=== PATIENT | female | born 1975 | race Caucasian/White ===

== ENCOUNTER → 2020-04-10 10:07 | Outpatient (CLI) | payer OTHER, SELFPAY ==
--- NOTE | 2020-04-10 | EMB_PTH ---
PATIENT: NEEL KRISHNAMURTHY LOC: [facility]#:[id number] AGE/SX: 49/F ROOM: RE04/10/[address]: SIENNA Resendiz : 1975 BED: DIS: SPEC #: [id number] RECD: 04/11/20 10:39 STATUS: CYNDI REIván #: [id number] MAGED: 04/10/20 00:[address]: Renetta Tai NP DEPT: SURGICAL PATHOLOGY RECD BY: Baltazar Devine ENTERED: 04/11/20 10:40 SP TYPE: ENDOM BX/C ROSEMARY DR: Clau Primary Care Phys Tissues: Endometrium, NOS Procedures: Surgery Specimen Level IV HEADER OPERATION: Endometrial biopsy PRE-OP DIAGNOSIS: Abnormal uterine bleeding TISSUE SUBMITTED: Endometrial biopsy MICROSCOPIC DIAGNOSIS Endometrial biopsy: Proliferative endometrium. SJ:cheryl 04/14/2020 MICROSCOPIC DESCRIPTION Slides are reviewed. GROSS DESCRIPTION Received is one container labeled with the patient's name and not further designated. The specimen consists of multiple irregular and elongated fragments of reddish-begum soft tissue that in aggregate measure 3 x 2 x 0.2 cm. The specimen is totally submitted in one cassette. / AM:cheryl 04/11/2020 TC:4 CPT: 43772
[2020-04-10 09:29] VITALS: BMI 40.4
[2020-04-10 10:27] LABS: Absolute Lymphocyte Count 2.59 X10^3/uL (0.83-4.51); Absolute Neutrophil Count 5.1 X10^3/uL (2.0-7.7); Basophil# 0.04 X10^3/uL; Basophil% 0.5 % (0-1); Eosinophil# 0.14 X10^3/uL; Eosinophils% 1.7 % (0-5); Hemoglobin 13.4 g/dL (12.0-15.0); Lymphocyte # 2.59 X10^3/ul (4.0); Lymphocyte % 30.6 % (19-41); Mean Corp Hgb Conc 32.7 g/dL (32-36); Mean Corpuscular Hgb 28.8 pg (27.0-32.0); Mean Corpuscular Volume 88.2 fL (81-99); Mean Platelet Vol. 9.5 fl (6.2-12.0); Monocyte# 0.62 X10^3/uL; Monocyte% 7.3 % (0-10); NRBC Flagged by Analyzer 0 % (0-5); Neutrophil # 5.05 X10^3/uL (2.7-7.7); Neutrophil % 59.5 % (47-70); Platelet Count 294 K/mm3 (150-450); RBC Distribution Width CV 12.3 % (11.6-14.6); RBC Distribution Width SD 39.7 fl (35.1-43.9); Red Blood Count 4.65 M/mm3 (4.2-5.4); White Blood Count 8.5 K/mm3 (4.4-11.0)
[2020-04-10 10:45] LABS: Thyroid Stim Hormone (TSH) 2.29 uIU/mL (0.358-3.74)
[2020-04-15 21:19] LABS: HPV APTIMA, High Risk Negative (Negative)
== END ==
PROVIDERS: Referring Provider Nurse Practitioner Women's Health; Visit Provider Nurse Practitioner Women's Health
DX: Z12.4 Encounter for screening for malignant neoplasm of cervix (principal); Z13.29 Encounter for screening for other suspected endocrine disorder; N93.9 Abnormal uterine and vaginal bleeding, unspecified; N92.1 Excessive and frequent menstruation with irregular cycle
CPT/HCPCS: 36415; 84443; 85025; 87624; 88175; 88305; G0145

== ENCOUNTER → 2020-04-24 14:40 | Outpatient (CLI) | payer OTHER, SELFPAY ==
[2020-04-10 09:29] VITALS: BMI 40.4
--- NOTE | 2020-04-24 14:42 | US_ITS ---
STUDY: ULTRASOUND OF THE FEMALE PELVIS - COMPLETE REASON FOR EXAM: Female, 44 years old. IRREGULAR MENSES -- LMP LASTED 1 1/2 MONTHS LMP: 02/29/2020 TECHNIQUE: Endovaginal TECHNICAL QUALITY: Adequate. COMPARISON: None. FINDINGS: The uterus is anteverted and is in a midline position. The uterus measures 8.0 x 4.7 x 3.8 cm. Nabothian cysts at the uterine cervix. The endometrium measures 5.3 mm in thickness, and is hyperechoic. There is no demonstrated endometrial mass. There is no demonstrated myometrial mass. The patient does not have an I.U.D. The right ovary is visualized. The right ovary measures 2.4 x 1.3 x 1.4 cm. There is no right ovarian cyst or ovarian mass. There is no visualized right adnexal mass or complex lesion. There is normal arterial and normal venous vascularity. The left ovary is visualized. The left ovary measures 2.5 x 1.7 x 1.5 cm. There is no left ovarian cyst or ovarian mass. There is no visualized left adnexal mass or complex lesion. There is normal arterial and normal venous vascularity. There is no fluid in the cul-de-sac. The pre void volume of the bladder was 417 ml. US/Transvaginal Non- IMPRESSION: Nabothian cysts. Electronically Signed: Leobardo Rosado DO at 17:16 EST Tel [phone], Service support ,
--- NOTE | 2020-04-24 14:42 | US_ITS ---
STUDY: ULTRASOUND OF THE FEMALE PELVIS - COMPLETE REASON FOR EXAM: Female, 44 years old. IRREGULAR MENSES -- LMP LASTED 1 1/2 MONTHS LMP: 02/29/2020 TECHNIQUE: Endovaginal TECHNICAL QUALITY: Adequate. COMPARISON: None. FINDINGS: The uterus is anteverted and is in a midline position. The uterus measures 8.0 x 4.7 x 3.8 cm. Nabothian cysts at the uterine cervix. The endometrium measures 5.3 mm in thickness, and is hyperechoic. There is no demonstrated endometrial mass. There is no demonstrated myometrial mass. The patient does not have an I.U.D. The right ovary is visualized. The right ovary measures 2.4 x 1.3 x 1.4 cm. There is no right ovarian cyst or ovarian mass. There is no visualized right adnexal mass or complex lesion. There is normal arterial and normal venous vascularity. The left ovary is visualized. The left ovary measures 2.5 x 1.7 x 1.5 cm. There is no left ovarian cyst or ovarian mass. There is no visualized left adnexal mass or complex lesion. There is normal arterial and normal venous vascularity. There is no fluid in the cul-de-sac. The pre void volume of the bladder was 417 ml. US/Pelvic (Non ) IMPRESSION: Nabothian cysts. Electronically Signed: Leobardo Rosado DO at 17:16 EST Tel [phone], Service support ,
--- NOTE | 2020-04-24 15:40 | BI_ITS ---
MAMMOGRAPHY - BILATERAL SCREENING REASON FOR EXAM: Female, 44 years old. Routine annual screening examination. PERTINENT HISTORY: Non-contributory. TECHNIQUE: Digital bilateral breast casie (3D mammographic acquisition) in the CC and MLO projections. 2-D mediolateral oblique (MLO) and craniocaudad (CC) views of both breasts were obtained. CAD: Full Field Digital Mammography with Computer Added Detection was performed. COMPARISON: Comparison is made with prior outside examination dated 10/25/2017. FINDINGS: Breast Composition: There are scattered areas of fibroglandular density. There are no dominant masses or suspicious calcifications. Stable small benign appearing bilateral axillary lymph nodes. No other significant abnormalities are identified. There has been no significant change since the prior study. BI/SCRN MAMM (CAD)W/CASIE BILAT IMPRESSION: Stable bilateral screening mammogram. Yearly follow-up mammogram recommended. (A) ASSESSMENT CATEGORY: BIRADS Category 2: Benign. A letter regarding these results will be sent to the patient by the facility within 30 days. Approximately 10% of breast cancers are not detected by mammography. A normal mammogram should not delay biopsy of a clinically suspicious abnormality. [id number] Electronically Signed: Marv Sorto MD at 11:22 EST , Service support ,
== END ==
PROVIDERS: Referring Provider Nurse Practitioner Women's Health; Visit Provider Nurse Practitioner Women's Health
DX: N92.1 Excessive and frequent menstruation with irregular cycle (principal); Z12.31 Encounter for screening mammogram for malignant neoplasm of breast
CPT/HCPCS: 76830; 76856; 77063; 77067

== ENCOUNTER → 2020-05-20 13:51 | Outpatient (CLI) | payer OTHER, SELFPAY ==
[2020-05-20 13:22] VITALS: BMI 23.3
[2020-05-20 15:21] LABS: ALB/GLOB Ratio 0.9 RATIO (0.9-2.4); AST(SGOT) 14 U/L (15-37); Alanine Aminotransfer ALT/SGPT 25 U/L (13-56); Albumin, Serum 3.7 g/dL (3.2-5.0); Alkaline Phosphatase 45 U/L (45-117); Anion Gap 5 (5-15); BUN 10 mg/dL (7-18); BUN/Creat Ratio 9.7 RATIO (10-20); Calcium,Total 8.8 mg/dL (8.5-10.1); Chloride 107 mmol/L (98-107); Cholesterol 339 mg/dL (200); Creatinine, Serum 1.03 mg/dL (0.55-1.02); EST Glomerular Filtration Rate 61 mL/min (>60); Est Glom Filt Rate - Afr Amer 74 mL/min (>60); Globulin 4.2 g/dL (2.2-4.2); Glucose 121 mg/dL (74-106); High Density Lipoprotein 36 mg/dL; Potassium 3.7 mmol/L (3.5-5.1); Protein, Total 7.9 g/dL (6.4-8.2); Sodium Level 139 mmol/L (136-145); Triglycerides 139 mg/dL; Very Low Density Lipoprotein 28 mg/dL (5-40)
== END ==
PROVIDERS: PCP Internal Medicine; Referring Provider Internal Medicine; Visit Provider Internal Medicine
DX: I10 Essential (primary) hypertension (principal); E78.5 Hyperlipidemia, unspecified
CPT/HCPCS: 36415; 80053; 80061

== ENCOUNTER → 2020-05-29 13:48 | Outpatient (CLI) | payer OTHER, SELFPAY ==
[2020-05-20 13:22] VITALS: BMI 23.3
--- NOTE | 2020-05-29 13:49 | EKG12_ITS ---
Test Reason : PRE OP Blood Pressure : / mmHG Vent. Rate : 090 BPM Atrial Rate : 090 BPM P-R Int : 146 ms QRS Dur : 074 ms QT Int : 332 ms P-R-T Axes : 019 029 002 degrees QTc Int : 406 ms Normal sinus rhythm Nonspecific T wave abnormality Abnormal ECG Confirmed by JA ABDI, TRACI ([id number]), editor publications BRAXTON ZIEGLER ([id number]) on 06/02/2020 7:52:54 AM Referred By: Supriya Swartz Confirmed By:DARRYL PERES MD
--- NOTE | 2020-05-29 13:56 | ECHOCS_ITS ---
Reason For Study: VSD Procedure This was a 2D Doppler, Color Flow transthoracic echocardiogram. The study was technically difficult. Exam performed in department. Left Ventricle Normal LV size. 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 The estimated ejection fraction is 60 %. Normal diastology for age. No regional wall motion abnormalities noted. Right Ventricle Normal RV size. Normal systolic function. Atria Normal left atrium. Normal right atrium. No doppler evidence for ASD. Mitral Valve There is no mitral valve stenosis. No mitral valve insufficiency. Tricuspid Valve There is no tricuspid stenosis. Unable to estimate RV systolic pressure due to insufficient tricuspid regurgitant envelope. Trivial tricuspid valve insufficiency. Aortic Valve Trisinus/trileaflet aortic valve. There is no aortic stenosis. Trivial aortic valve insufficiency. Pulmonic Valve There is no pulmonic valvular stenosis. No pulmonic valve insufficiency. Great Vessels Normal aortic root. Pericardium/Pleural No pericardial effusion. Medication 22 gauge I.V. with prn adaptor inserted into right arm. Diluted definity 1ml given slow IV push to enhance endocardial definition. MMode/2D Measurements & Calculations LVIDd: 4.6 cm IVSd: 0.91 cm LVOT diam: 2.1 cm LVIDs: 2.7 cm LVPWd: 0.91 cm RVDd: 3.3 cm FS: 41.2 % LVOT area: 3.5 cm2 Ao root diam: 3.0 cm LAV(MOD-bp): 36.5 ml LVAd ap4: 36.0 cm2 LAV(MOD-bp) Indexed: 17.5 ml/m2 EDV(MOD-sp4): 131.2 ml LAV(MOD-sp2): 34.9 ml EDV(sp4-el): 136.0 ml LAV(MOD-sp4): 35.0 ml LVAs ap4: 21.3 cm2 ESV(MOD-sp4): 55.9 ml ESV(sp4-el): 57.1 ml EF(MOD-sp4): 57.4 % EF(sp4-el): 58.0 % SV(MOD-sp4): 75.3 ml SV(sp4-el): 78.9 ml LA A4 area: 13.9 cm2 LA dimension(2D): 3.7 cm RA A4 area: 13.8 cm2 Doppler Measurements & Calculations MV E max enio: 91.1 cm/sec Lat Peak E' Enio: 8.5 cm/sec Med Peak E' Enio: 8.9 cm/sec MV A max enio: 106.6 cm/sec E/E' lat: 10.7 E/E' med: 10.3 MV E/A: 0.86 Ao V2 max: 157.8 cm/sec LV V1 max: 114.1 cm/sec PA V2 max: 102.5 cm/sec Ao max P.0 mmHg LV V1 max P.2 mmHg ESTEFANI(V,D): 2.5 cm2 TR max enio: 190.3 cm/sec TR max P.5 mmHg Interpretation Summary The estimated ejection fraction is 60 %. 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 Ordering Physician: Supriya Swartz Referring Physician: Supriya Swartz Performed By: Do Hurtado RDCS
== END ==
PROVIDERS: PCP Internal Medicine; Referring Provider Internal Medicine; Visit Provider Internal Medicine
DX: Q21.0 Ventricular septal defect (principal); I10 Essential (primary) hypertension
CPT/HCPCS: 93005; 93306; Q9957; A4216; C8929

== ENCOUNTER → 2020-06-18 16:06 | Outpatient (CLI) | payer OTHER, SELFPAY ==
[2020-06-18 15:42] VITALS: BMI 40.8
[2020-06-18 16:08] LABS: Mucous, Urine 0 SEEN /hpf (<or=2+)
[2020-06-18 16:57] LABS: Color, Urine Yellow (Yellow); Glucose, Dipstick Normal (Normal); Ketone-Dipstick 5 mg/dl (Negative); Leukocyte Esterase-Dipstick 25 /ul (Negative); Nitrite-Dipstick Negative (Negative); Occult Blood-Urine 25 /ul (Negative); Protein-Dipstick 15 mg/dl (Negative); Specific Gravity, Urine 1.025 (1.002-1.030); Urine Bilirubin Dipstick Negative (Negative); Urine Clarity Clear (Clear); Urine Urobilinogen Normal (Normal)
[2020-06-18 17:09] LABS: Hemoglobin A1c 5.5 % (3.8-5.6)
[2020-06-18 17:26] LABS: Red Blood Cells-Urine 0-5 SEEN /hpf (0-5); Squamous Epithelial Cells - UA 0-5 SEEN /hpf (5-10)
[2020-06-18 17:27] LABS: Bacteria RARE /hpf (None Seen); White Blood Cells 0-5 SEEN /hpf (0-5)
== END ==
PROVIDERS: PCP Internal Medicine; Referring Provider Internal Medicine; Visit Provider Internal Medicine
DX: R35.0 Frequency of micturition (principal); R73.9 Hyperglycemia, unspecified
CPT/HCPCS: 36415; 81001; 83036

== ENCOUNTER 2020-09-09 09:51 | Day surgery (SDC) | payer OTHER, SELFPAY ==
[2020-06-18 15:42] VITALS: BMI 40.8
[2020-08-27 15:12] VITALS: BMI 40.8
[2020-09-08 17:29] LABS: Hematocrit 43.2 % (37-47); Hemoglobin 14.2 g/dL (12.0-15.0); Mean Corp Hgb Conc 32.9 g/dL (32-36); Mean Corpuscular Hgb 28.7 pg (27.0-32.0); Mean Corpuscular Volume 87.3 fL (81-99); Mean Platelet Vol. 10.7 fl (6.2-12.0); Platelet Count 298 K/mm3 (150-450); RBC Distribution Width SD 41.4 fl (35.1-43.9); Red Blood Count 4.95 M/mm3 (4.2-5.4); White Blood Count 8.1 K/mm3 (4.4-11.0)
[2020-09-08 17:41] LABS: Magnesium 2.4 mg/dL (1.6-2.6)
[2020-09-09] VITALS (10 sets, daily range): BP systolic 108–148; BP diastolic 62–85; PULSE 81–102; RESP 16–18; TEMP 36.4–36.9; O2SAT 92–100; BMI 39.3
[2020-09-09 10:27] LABS: Internal QC Validated? YES +Cl - CLEAR BKGD; Pregnancy, Urine Negative Negative
[2020-09-09 10:36] LABS: Bedside Glucose 129 mg/dL (70-110)
[2020-09-09] MEDS: dexAMETHasone 10 MG/ML Vial 8 MG IV (10:46)
[2020-09-09] MEDS: Celecoxib 200 MG Capsule 400 MG PO (10:47)
[2020-09-09] MEDS: Gabapentin 600 MG Tablet PO (10:48)
[2020-09-09] MEDS: Phenazopyridine 95 MG Tablet 190 MG PO (10:48)
[2020-09-09] MEDS: Acetaminophen 500 MG Tablet 1000 MG PO (10:49)
[2020-09-09] MEDS: Scopolamine 1mg/72hr Patch 1 PATCH TD (10:49)
[2020-09-09] MEDS: Lactated Ringers 1,000 ML 40 ML IV ×3 (10:55→14:30)
--- NOTE | 2020-09-09 10:59 | HP.PCM.OB_ITS ---
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 Hypertension Seasonal allergies Home Medications amlodipine [Norvasc] 5 mg PO DAILY 09/03/20 [History Last Taken 09/09/20] atorvastatin [Lipitor] 20 mg PO DAILY 09/03/20 [History Last Taken Unknown] Allergy/AdvReac Type Severity Reaction Status Date / Time No Known Allergies Allergy Verified 09/09/20 10:25 Family History Father Heart disease blood clot blood transfusion Myocardial infarction Unknown Breast cancer Grandfather Myocardial infarction Uncle CVA (cerebral vascular accident) Other Alcoholism Surgical History History of tubal ligation Social History household members: spouse and children number of children: 1 current occupational status: employed current occupation: Service Now history of recent travel: No sexually active: Yes Smoking Status: Never smoker alcohol intake: current alcohol intake frequency: holidays/special occasions only substance use type: does not use what type of physical activity do you participate in: walking seatbelt use: sometimes do you feel safe at home: Yes additional social history: - Darren History 1 Elective abortions Hx Para 1 Spontaneous abortions Hx # Term Pregnancies Ectopic pregnancies Hx # Pregnancies Multiple births # of living children 1 Past Pregnancies Del. Date Name GA/Weeks Outcome Route Bth Weight Infant Gen Labor Lgth Anesthesia Del Locatn Provider FOB Unknown Alvarez Hewitt 12/31/97 ROS Eyes Eyes: Reports systems reviewed and no addt'l complaints, except as documented ENT HEENT: Reports systems reviewed and no addt'l complaints, except as documented Cardiovascular Cardiovascular: Reports systems reviewed and no addt'l complaints, except as documented Respiratory/Chest Respiratory/Chest: Reports systems reviewed and no addt'l complaints, except as documented Gastrointestinal Gastrointestinal: Reports systems reviewed and no addt'l complaints, except as documented Genitourinary Genitourinary: Reports systems reviewed and no addt'l complaints, except as documented Musculoskeletal Musculoskeletal: Reports systems reviewed and no addt'l complaints, except as documented Integumentary Integumentary: Reports systems reviewed and no addt'l complaints, except as documented Neurologic Neurologic: Reports systems reviewed and no addt'l complaints, except as doc umented Psychiatric Psychiatric: Reports systems reviewed and no addt'l complaints, except as documented Endocrine Endocrinology: Reports systems reviewed and no addt'l complaints, except as documented Hematologic/Lymphatic Hematologic/Lymphatic: Reports systems reviewed and no addt'l complaints, except as documented Allergic/Immunologic Allergic/Immunologic: Reports systems reviewed and no addt'l complaints, except as documented Vital Signs Vital Signs Vital Signs: 09/09/20 10:26 Temperature 98.5 F Temperature Source Temporal Pulse Rate 101 H Respiratory Rate 18 Respiratory Pattern Normal Blood Pressure 142/85 H Blood Pressure Mean 104 Blood Pressure Source Monitor Blood Pressure Position Semi-Fowlers Blood Pressure Location Left Arm Pulse Ox 100 Oxygen Delivery Method Room Air Weight Weight: 229 lb 4.492 oz Body Mass Index (BMI) 39.3 Physical Exam Const alert, oriented x3, no apparent distress, average body habitus, healthy appearing and well nourished HEENT normocephalic and moist oral mucous membranes Head and Scalp: atraumatic Eyes PERRL and EOMs intact bilaterally Neck full ROM Resp normal respiratory effort, no retractions and no use of accessory muscles Cardio regular rate and regular rhythm GI soft to palpation, non-tender and non-distended Extremity normal to inspection and full ROM Skin no rashes or lesions noted Neuro no focal motor deficits and no sensory deficits noted Psych mental status grossly normal, affect normal, speech normal and activity/motor behavior normal Labs Labs Labs: Blood Type A POSITIVE Antibody Screen NEGATIVE Hct 43.2 % (37-47) Hgb 14.2 g/dL (12.0-15.0) Assessment & Plan (1) Abnormal uterine bleeding (AUB): PLAN: Patient presents for discussion of definitive surgical management of AUB Has previously failed OCPs. Bleeding has improved on Aygestin, but has a lot of difficulty remembering to take medication. Had ultrasound done that showed uterus measuring 8.0 x 4.7 x 3.8 cm and was otherwise unremarkable. Endometrial biopsy done and was negative Discussed plan to proceed with robotic assisted total laparoscopic hysterectomy, bilateral salpingectomy, possible bilateral salpingo-oophorectomy, cystoscopy Risks, benefits, indications, and alternatives to the procedure were discussed with the patient including bleeding, infection, and visceral or vascular injury. Discussed the possibility of excessive blood loss due to vascular injury or bleeding with fibroid uterus. Patient is agreeable to blood transfusion if medically necessary. Discussed the possibility of infection at the incision sites, inside the abdomen, or at the vaginal cuff. Discussed that this could require repeat hospitalization or reoperation. We discussed the possibility of damage to surrounding structures. Discussed the possibility of injury to bowel, bladder, or ureters. Discussed that if 1 of these injuries was identified at the time of the procedure, we would consider an intraoperative consult with general surgery or urology. Discussed the possibility of delayed diagnosis of bowel, bladder, or ureteral injury, and that this could require hospitalization after discharge. Patient is aware that in the event of injury to bowel bladder, bladder, or ureters she could require additional surgical interventions. Discussed that I would recommend cystoscopy at the time of surgery in order to evaluate integrity of the ureters. We discussed the possibility that the hysterectomy might not be able to be completed in a minimally invasive manner, and that this would require a larger incision on her abdomen and admission to the hospital. We discussed the risks and benefits of oophorectomy at the time of hysterectomy. Plan to leave ovaries in place unless appear extremely abnormal at the time of surgery Patient already obtained medical clearance by PCP, however patient reports that she has previously been told that due to history of VSD she needs infective endocarditis prophylaxis. Will verify with PCP if this is necessary given her medical history. Consent form signed with patient in the office
--- NOTE | 2020-09-09 12:00 | HYST_PTH ---
PATIENT: NEEL KRISHNAMURTHY [place] [facility] [place][id number] AGE/SX: 44/F ROOM: RE09/09/[address]: Dr. Belén Hsieh MD : 1975 BED: DIS: 09/09/2020 SPEC #: [id number] RECD: 09/09/20 15:37 STATUS: CYNDI YI #: [id number] MAGED: 09/09/20 12:[address]: Belén Hsieh DEPT: SURGICAL PATHOLOGY RECD BY: Raya Lopez ENTERED: 09/10/20 08:33 SP TYPE: HYSTERECT OTHR DR: Supriya Swartz MD Tissues: Uterus, NOS Procedures: Surgery Specimen Level V HEADER OPERATION: ERAS, robotic assisted total laparoscopic hysterectomy, salpingectomy PRE-OP DIAGNOSIS: Abnormal uterine bleeding TISSUE SUBMITTED: Uterus, cervix, bilateral fallopian tubes MICROSCOPIC DIAGNOSIS Uterus, cervix, bilateral fallopian tubes, hysterectomy and bilateral salpingectomy: Cervix - mild chronic inflammation. Endometrium - proliferative endometrium. Myometrium - no pathologic diagnosis. Bilateral fallopian tubes - no pathologic diagnosis. SJ:cheryl 09/11/2020 COMMENT Please make reference to previous specimen ([id number]) endometrial biopsy with diagnosis of ?proliferative endometrium.? MICROSCOPIC DESCRIPTION Slides are reviewed. GROSS DESCRIPTION Received in fixative is one container labeled with the patient's name and designated uterus. The specimen consists of a uterus with attached cervix and two detached fallopian tubes. The uterus with cervix measures 10.5 x 6.5 x 4 cm and weighs 122 gm. The ectocervix is oval in contour and free of lesions. The endocervical canal measures 4 cm in length and is grossly unremarkable. The triangular endometrial cavity measures 4 x 3.5 cm. The velvety, light begum endometrium measures up to 0.2 cm in thickness. The myometrium measures 2 cm in average thickness. No mass lesions are identified. The detached undesignated fallopian tubes have average lengths of 4 cm and average diameters of 0.5 cm. Normal fimbriated ends appear to be present. [employer] sections are submitted in eight cassettes as follows: 1 - anterior cervix, 2 - posterior cervix, 3 & 4 - anterior myometrial wall, 5 & 6 - posterior myometrial wall, 7 - one fallopian tube, 8 - the other fallopian tube. / AM:cheryl 09/10/20 TC:3 CPT: 20241
[2020-09-09] MEDS: Cefazolin 2 GM in 0.9% Normal Saline 100 ML IV (13:04)
[2020-09-09] MEDS: Ropivacaine 0.5% 30 ML Vial (15:10)
--- NOTE | 2020-09-09 16:18 | PCM.OPRPT ---
Problems Associated Problem List Diagnoses (1) Abnormal uterine bleeding (AUB): Report of Operation Date of Procedure: 09/09/20 Pre-Operative Diagnosis: Abnormal uterine bleeding Post-Operative Diagnosis: Same Surgery/Procedure Performed:: Robotic assisted total laparoscopic hysterectomy, bilateral salpingectomy, cystoscopy Description of Surgical Findings:: Normal-appearing uterus, cervix, tubes, and ovaries bilaterally russian language instructor: Naheed Chen Type of Anesthesia: General Specimen's removed: Uterus, cervix, bilateral fallopian tubes Estimated Blood Loss (mL): 50 Description of Procedure: The patient was taken to the operating room where general anesthesia was obtained without difficulty. She was prepped and draped in the dorsolithotomy position with yellowfin stirrups. Weighted speculum was placed in the posterior aspect of the vagina and the anterior lip of the cervix was grasped with a single-tooth tenaculum. The cervix was sequentially dilated in order to accommodate a Aventicular uterine manipulator. Gloves were changed and attention was directed to the abdominal cavity. A 5 mm incision was made in the left upper quadrant and the varies needle was inserted without difficulty. The abdomen was insufflated. The Veress needle was removed and a 5 mm Optiview port was placed under direct visualization. Intra-abdominal placement was confirmed. 8 mm incisions were made in the right and left lower quadrants and approximately 2 fingerbreadths above the umbilicus and robotic ports were placed. A 12 mm accessory port was placed in the right upper quadrant. Findings were as above. The patient was placed in steep Trendelenburg positioning and the bowel was displaced superiorly. The da Geovany robot was subsequently docked without any complications.the bilateral fallopian tubes were elevated and grasped. The mesosalpinx was cauterized and transected bilaterally. The fallopian tubes were amputated at the cornual region and removed through the accessory port. The utero-ovarian ligaments were identified bilaterally.. These were cauterized and transected with the bipolar cautery and the EndoShears. This was followed by the round ligament, which was cauterized and transected in a similar fashion. The anterior leaf of the broad ligament was entered and the bladder flap dissected off of the lower uterine segment and cervix without complications. The uterine arteries bilaterally were skeletonized, cauterized, and transected. At this time, the uterus was blanched effectively demonstrating that the blood supply to the uterus had been terminated. The colpotomy cup was made with the monopolar scissors and carried around the entire cervicovaginal junction until the cervix and uterus were released from its moorings to the vagina. The cervix and uterus were removed from the abdominal cavity through the vagina. A pneumooccluder was then placed in the vagina. The cuff was then closed in a running fashion using oh V-Loc suture. The abdomen was copiously irrigated, cleared of all clots and debris, and the pedicles were examined and noted to be hemostatic. Occluder was then removed from the vagina. Attention was then directed to the pelvis to perform a cystoscopy. Watt catheter was removed and the cystoscope was introduced into the bladder. The bladder was inspected and no evidence of trauma was noted. Vigorous spill was noted bilaterally from the ureters. The cystoscope was then removed from the bladder. Gloves were changed and all the instruments were subsequently removed from the patient?s abdomen and vagina, and the 12-mm fascial defect was closed with a #0 Vicryl stitch, and the five skin incisions were closed with #4-0 Monocryl for excellent hemostasis and reapproximation. All counts were correct x2. The patient was awakened and taken to the recovery room in stable condition. Complications None apparent Admit VTE Documentation VTE Present on Admission: No VTE Mechan Device Prophylaxis: SCD's VTE Pharm Prophylaxis ordered?: No Procedures Urinary/Genital 52xxx-59xxx: [id number] TLH+BS/O <250gr uterus (Robotic assisted)
--- NOTE | 2020-09-09 16:20 | PCM.DC ---
Discharge Instructions Diet Discharge Diet: No restrictions Activity Discharge Activity: May Not Drive (While on narcotic pain medication) and May Shower May resume sexual activity in: 8 weeks Lifting Restrictions: No lifting greater than 20 pounds until postop visit Dressing / Incision Call your doctor if your incision/area has: Continuous Slow Oozing, Sudden Increased Bleeding, Increased Pain/ Swelling, Increased Redness, Foul Smelling Discharge and Swelling at the incision site Call your doctor if you observe: Fever of 101 or Higher, Inability to urinate, Using more than 1 pad per hour, Shortness of breath, Dizziness, Fainting spells, Chest pain and Uncontrolled pain Remove Dressing in: 1 week Cleanse incision/area with: Soap & Water Follow Up Care Please Follow Up With: Belén Hsieh MD When: 2 weeks Test Results: Test results from this visit will be discussed in further detail at your follow-up appointment, if applicable. Discharge Plan Admission Primary Reason for Your Visit: Hysterectomy Attending Provider: Belén Hsieh Primary Care Provider: Supriya Swartz Instructions Patient Instructions: Caring for Yourself After Hysterectomy Discharge Orders/Prescriptions Prescriptions: New naproxen 250 MG tablet 250 - 500 mg PO Q8H PRN PRN (Reason: MILD PAIN) Qty: 30 RF: 1 oxycodone 5 mg capsule 5 mg PO Q6H PRN (Reason: pain) 5 Days Qty: 15 RF: 0 Continued atorvastatin [Lipitor] 20 mg tablet 20 mg PO DAILY RF: 0 amlodipine [Norvasc] 5 mg tablet 5 mg PO DAILY RF: 0 Referrals / Follow Up: Supriya Swartz MD [Primary Care Provider] - Disposition Disposition (needs filled in before D/C Order can be placed): Home, self care
== END 2020-09-09 19:27 | disposition home or self-care (01) ==
LOC: SDC 09:52 → AC 09:52
PROVIDERS: Anesthesiology; PCP Internal Medicine; Referring Provider Obstetrics & Gynecology; Visit Provider Obstetrics & Gynecology
PROC: 0UT90ZZ Resection of Uterus, Open Approach (ICD-10-PCS; CPT 58571; principal; 2020-09-09 11:40)
DX: N72 Inflammatory disease of cervix uteri (principal); N93.9 Abnormal uterine and vaginal bleeding, unspecified; Z20.822 Contact with and (suspected) exposure to COVID-19; Q21.0 Ventricular septal defect; I10 Essential (primary) hypertension; E78.00 Pure hypercholesterolemia, unspecified; Z79.899 Other long term (current) drug therapy
CPT/HCPCS: 00840; 58571; S2900; 36415; 81025; 82962; 83735; 85027; 86850; 86900; 86901; 87426; 88307; C9803; J7120; J2405

== ENCOUNTER → 2020-10-15 15:21 | Outpatient (CLI) | payer OTHER, SELFPAY ==
[2020-09-24 16:06] VITALS: BMI 39.2
[2020-10-15 16:56] LABS: ALB/GLOB Ratio 0.9 RATIO (0.9-2.4); AST(SGOT) 19 U/L (15-37); Alanine Aminotransfer ALT/SGPT 26 U/L (13-56); Albumin, Serum 3.5 g/dL (3.2-5.0); Alkaline Phosphatase 76 U/L (45-117); Anion Gap 7 (5-15); BUN 18 mg/dL (7-18); BUN/Creat Ratio 20.1 RATIO (10-20); Calcium,Total 8.7 mg/dL (8.5-10.1); Chloride 106 mmol/L (98-107); Cholesterol 261 mg/dL (200); Creatinine, Serum 0.89 mg/dL (0.55-1.02); EST Glomerular Filtration Rate 72 mL/min (>60); Est Glom Filt Rate - Afr Amer 87 mL/min (>60); Glucose 115 mg/dL (74-106); High Density Lipoprotein 54 mg/dL; Potassium 3.4 mmol/L (3.5-5.1); Protein, Total 7.5 g/dL (6.4-8.2); Sodium Level 139 mmol/L (136-145); Triglycerides 263 mg/dL; Very Low Density Lipoprotein 53 mg/dL (5-40)
== END ==
PROVIDERS: PCP Internal Medicine; Visit Provider Internal Medicine
DX: E78.5 Hyperlipidemia, unspecified (principal)
CPT/HCPCS: 36415; 80053; 80061

== ENCOUNTER 2021-02-09 15:17 | Outpatient (CLI) | payer OTHER, SELFPAY ==
[2021-02-09 15:55] VITALS: BP 142/77; PULSE 87; RESP 16; TEMP 36.9; O2SAT 99; BMI 38.6
[2021-02-09] MEDS: 0.9% Saline Lock 10 ML Syringe IV (15:58)
[2021-02-09 16:31] VITALS: BP 122/69; PULSE 81; RESP 16; TEMP 36.9; O2SAT 99
[2021-02-09 17:30] VITALS: BP 124/69; PULSE 78; RESP 16; TEMP 36.8; O2SAT 99
== END 2021-02-09 17:35 | disposition home or self-care (01) ==
LOC: MS3OUT 15:17 → MS3 15:18
PROVIDERS: PCP Internal Medicine; Referring Provider Nurse Practitioner Acute Care; Visit Provider Nurse Practitioner Acute Care
DX: U07.1 COVID-19 (principal)
CPT/HCPCS: J7050; M0245; Q0245; A4216

== ENCOUNTER 2021-05-27 15:14 | Outpatient (CLI) | payer OTHER, SELFPAY ==
--- NOTE | 2021-05-27 15:16 | BI_ITS ---
MAMMOGRAPHY - BILATERAL SCREENING REASON FOR EXAM: Female, 45 years old. Routine annual screening examination. PERTINENT HISTORY: Non-contributory. TECHNIQUE: Digital bilateral breast casie (3D mammographic acquisition) in the CC and MLO projections. 2-D mediolateral oblique (MLO) and craniocaudad (CC) views of both breasts were obtained. CAD: Full Field Digital Mammography with Computer Added Detection was performed. COMPARISON: Comparison is made with prior study dated 04/24/2020. FINDINGS: Breast Composition: There are scattered areas of fibroglandular density. There are no dominant masses or suspicious calcifications. No other significant abnormalities are identified. There has been no significant change since the prior study. BI/SCRN MAMM (CAD)W/CASIE BILAT IMPRESSION: Stable bilateral screening mammogram. Yearly follow-up mammogram recommended. (A) ASSESSMENT CATEGORY: BIRADS Category 1: Negative. A letter regarding these results will be sent to the patient by the facility within 30 days. Approximately 10% of breast cancers are not detected by mammography. A normal mammogram should not delay biopsy of a clinically suspicious abnormality. [id number] Electronically Signed: Marv Sorto MD at 8:07 EST ,
== END 2021-05-27 23:59 | disposition home or self-care (01) ==
LOC: OPBI 15:15
PROVIDERS: PCP Internal Medicine; Visit Provider Internal Medicine
DX: Z12.31 Encounter for screening mammogram for malignant neoplasm of breast (principal)
CPT/HCPCS: 77063; 77067

== ENCOUNTER → 2022-05-19 | Outpatient (CLI) | payer OTHER, SELFPAY ==
[2022-05-19 16:48] LABS: Absolute Neutrophil Count 5.9 X10^3/uL (2.0-7.7); Basophil# 0.04 X10^3/uL; Basophil% 0.4 % (0-1); Eosinophils% 3.1 % (0-5); Hematocrit 40.2 % (37-47); Hemoglobin 13.2 g/dL (12.0-15.0); Lymphocyte % 28.1 % (19-41); Mean Corp Hgb Conc 32.8 g/dL (32-36); Mean Corpuscular Hgb 29.9 pg (27.0-32.0); Monocyte# 0.63 X10^3/uL; Monocyte% 6.5 % (0-10); NRBC Flagged by Analyzer 0 % (0-5); Neutrophil # 5.92 X10^3/uL (2.7-7.7); Neutrophil % 61.6 % (47-70); Platelet Count 253 K/mm3 (150-450); RBC Distribution Width CV 12.6 % (11.6-14.6); RBC Distribution Width SD 41.6 fl (35.1-43.9); Red Blood Count 4.42 M/mm3 (4.2-5.4); White Blood Count 9.6 K/mm3 (4.4-11.0)
[2022-05-19 17:22] LABS: ALB/GLOB Ratio 0.8 RATIO (0.9-2.4); AST(SGOT) 9 U/L (15-37); Alanine Aminotransfer ALT/SGPT 20 U/L (13-56); Albumin, Serum 3.2 g/dL (3.2-5.0); Alkaline Phosphatase 65 U/L (45-117); Anion Gap 7 (5-15); BUN 17 mg/dL (7-18); BUN/Creat Ratio 16.7 RATIO (10-20); Calcium,Total 9.3 mg/dL (8.5-10.1); Chloride 104 mmol/L (98-107); Cholesterol 217 mg/dL (200); Creatinine, Serum 1.02 mg/dL (0.55-1.02); EST Glomerular Filtration Rate 61 mL/min (>60); Est Glom Filt Rate - Afr Amer 74 mL/min (>60); Globulin 4.2 g/dL (2.2-4.2); Glucose 113 mg/dL (74-106); High Density Lipoprotein 61 mg/dL; Protein, Total 7.4 g/dL (6.4-8.2); Sodium Level 140 mmol/L (136-145); Triglycerides 305 mg/dL; Very Low Density Lipoprotein 61 mg/dL (5-40)
== END | disposition home or self-care (01) ==
LOC: BIMLAB 15:49
PROVIDERS: PCP Internal Medicine; Referring Provider Internal Medicine; Visit Provider Internal Medicine
DX: E78.5 Hyperlipidemia, unspecified (principal); I10 Essential (primary) hypertension
CPT/HCPCS: 36415; 80053; 80061; 85025

== ENCOUNTER → 2023-06-01 | Outpatient (CLI) | payer OTHER, SELFPAY ==
[2023-06-01 16:39] LABS: Absolute Lymphocyte Count 2.85 X10^3/uL (0.83-4.51); Absolute Neutrophil Count 5.5 X10^3/uL (2.0-7.7); Basophil# 0.05 X10^3/uL; Basophil% 0.5 % (0-1); Eosinophil# 0.24 X10^3/uL; Eosinophils% 2.6 % (0-5); Hematocrit 41.9 % (37-47); Hemoglobin 13.8 g/dL (12.0-15.0); Lymphocyte # 2.85 X10^3/ul (0.83-4.51); Lymphocyte % 30.3 % (19-41); Mean Corp Hgb Conc 32.9 g/dL (32-36); Mean Corpuscular Hgb 29.6 pg (27.0-32.0); Mean Corpuscular Volume 89.7 fL (81-99); Mean Platelet Vol. 9.8 fl (6.2-12.0); Monocyte# 0.68 X10^3/uL; Monocyte% 7.2 % (0-10); NRBC Flagged by Analyzer 0 % (0-5); Neutrophil # 5.54 X10^3/uL (2.7-7.7); Platelet Count 242 K/mm3 (150-450); RBC Distribution Width CV 12.3 % (11.6-14.6); RBC Distribution Width SD 40.4 fl (35.1-43.9); Red Blood Count 4.67 M/mm3 (4.2-5.4); White Blood Count 9.4 K/mm3 (4.4-11.0)
[2023-06-01 17:27] LABS: AST(SGOT) 19 U/L (15-37); Alanine Aminotransfer ALT/SGPT 38 U/L (13-56); Albumin, Serum 3.7 g/dL (3.2-5.0); Alkaline Phosphatase 61 U/L (45-117); Anion Gap 8 (5-15); BUN 17 mg/dL (7-18); BUN/Creat Ratio 20.9 RATIO (10-20); Calcium,Total 9.2 mg/dL (8.5-10.1); Chloride 103 mmol/L (98-107); Cholesterol 224 mg/dL (200); Creatinine, Serum 0.81 mg/dL (0.55-1.02); EST Glomerular Filtration Rate 79 mL/min (>60); Est Glom Filt Rate - Afr Amer 96 mL/min (>60); Globulin 3.8 g/dL (2.2-4.2); Glucose 92 mg/dL (74-106); High Density Lipoprotein 66 mg/dL; Potassium 3.9 mmol/L (3.5-5.1); Protein, Total 7.5 g/dL (6.4-8.2); Sodium Level 138 mmol/L (136-145); Triglycerides 240 mg/dL; Very Low Density Lipoprotein 48 mg/dL (5-40)
== END | disposition home or self-care (01) ==
LOC: BIMLAB 16:14
PROVIDERS: PCP Internal Medicine; Referring Provider Internal Medicine; Visit Provider Internal Medicine
DX: I10 Essential (primary) hypertension (principal); E78.5 Hyperlipidemia, unspecified
CPT/HCPCS: 36415; 80053; 80061; 85025

== ENCOUNTER → 2023-12-29 | Outpatient (CLI) | payer OTHER, SELFPAY ==
--- NOTE | 2023-12-29 15:58 | BI_ITS ---
MAMMOGRAPHY - BILATERAL SCREENING REASON FOR EXAM: Female, 47 years old. Routine annual screening examination. PERTINENT HISTORY: Non-contributory. TECHNIQUE: Digital bilateral breast casie (3D mammographic acquisition) in the CC and MLO projections. 2-D mediolateral oblique (MLO) and craniocaudad (CC) views of both breasts were obtained. CAD: Full Field Digital Mammography with Computer Added Detection was performed. COMPARISON: Comparison is made with prior study dated May 27, 2021 and April 24, 2020. FINDINGS: Breast Composition: There are scattered areas of fibroglandular density. There are no dominant masses or suspicious calcifications. No other significant abnormalities are identified. There has been no significant change since the prior study. BI/SCRN MAMM (CAD)W/CASIE BILAT IMPRESSION: Stable bilateral screening mammogram. Yearly follow-up mammogram recommended. (A) ASSESSMENT CATEGORY: BIRADS Category 1: Negative. A letter regarding these results will be sent to the patient by the facility within 30 days. Approximately 10% of breast cancers are not detected by mammography. A normal mammogram should not delay biopsy of a clinically suspicious abnormality. [id number] Electronically Signed: Marv Sorto MD at 7:57 EDT ,
== END | disposition home or self-care (01) ==
LOC: OPBI 15:58
PROVIDERS: PCP Internal Medicine; Referring Provider Internal Medicine; Visit Provider Internal Medicine
DX: Z12.31 Encounter for screening mammogram for malignant neoplasm of breast (principal)
CPT/HCPCS: 77063; 77067

== ENCOUNTER → 2024-07-03 | Outpatient (CLI) | payer OTHER, SELFPAY ==
[2024-07-03 16:39] LABS: Absolute Lymphocyte Count 2.85 X10^3/uL (0.83-4.51); Absolute Neutrophil Count 5.5 X10^3/uL (2.0-7.7); Basophil# 0.06 X10^3/uL; Basophil% 0.6 % (0-1); Eosinophil# 0.47 X10^3/uL; Eosinophils% 4.9 % (0-5); Hematocrit 41.1 % (37-47); Lymphocyte # 2.85 X10^3/ul (0.83-4.51); Lymphocyte % 29.7 % (19-41); Mean Corp Hgb Conc 34.1 g/dL (32-36); Mean Corpuscular Hgb 29.7 pg (27.0-32.0); Mean Corpuscular Volume 87.3 fL (81-99); Monocyte# 0.72 X10^3/uL; Monocyte% 7.5 % (0-10); NRBC Flagged by Analyzer 0 % (0-5); Neutrophil # 5.46 X10^3/uL (2.7-7.7); Neutrophil % 56.9 % (47-70); Platelet Count 284 K/mm3 (150-450); RBC Distribution Width CV 12.5 % (11.6-14.6); RBC Distribution Width SD 39.9 fl (35.1-43.9); Red Blood Count 4.71 M/mm3 (4.2-5.4); White Blood Count 9.6 K/mm3 (4.4-11.0)
[2024-07-03 17:45] LABS: ALB/GLOB Ratio 1.4 RATIO (0.9-2.4); AST(SGOT) 20 U/L (<=31); Alanine Aminotransfer ALT/SGPT 16 U/L (<=34); Albumin, Serum 4.3 g/dL (3.5-5.0); Alkaline Phosphatase 78 U/L (35-104); Anion Gap 12 (5-15); BUN 11 mg/dL (4-19); BUN/Creat Ratio 14.4 RATIO (10-20); Calcium,Total 9.3 mg/dL (7.6-11.0); Carbon Dioxide 25.9 mmol/L (21.0-32.0); Chloride 103 mmol/L (98-108); Cholesterol 220 mg/dL (<=200); Creatinine, Serum 0.78 mg/dL (0.70-1.20); EST Glomerular Filtration Rate 92 (>60); Globulin 3.1 g/dL (2.2-4.2); Glucose 108 mg/dL (70-99); High Density Lipoprotein 62 mg/dL; Low Density Lipoprotein Calc. 77 mg/dL; Protein, Total 7.4 g/dL (5.9-8.4); Sodium Level 141 mmol/L (133-145); Total Bilirubin 0.17 mg/dL (0.00-1.30); Triglycerides 407 mg/dL; Very Low Density Lipoprotein 81 mg/dL (5-40); cholesterol:hdl ratio screen 3.56
== END | disposition home or self-care (01) ==
LOC: BIMLAB 15:48
PROVIDERS: PCP Internal Medicine; Referring Provider Internal Medicine; Visit Provider Internal Medicine
DX: Z00.00 Encounter for general adult medical examination without abnormal findings (principal)
CPT/HCPCS: 36415; 80053; 80061; 85025

== ENCOUNTER → 2024-12-26 | Outpatient (CLI) | payer OTHER, SELFPAY ==
[2024-12-26 13:20] LABS: AST(SGOT) 20 U/L (<=31); Alanine Aminotransfer ALT/SGPT 24 U/L (<=34); Albumin, Serum 4.5 g/dL (3.5-5.0); Alkaline Phosphatase 74 U/L (35-104); Anion Gap 14 (5-15); BUN 13 mg/dL (4-19); BUN/Creat Ratio 16.7 RATIO (10-20); Calcium,Total 9.3 mg/dL (7.6-11.0); Carbon Dioxide 22.6 mmol/L (21.0-32.0); Chloride 102 mmol/L (98-108); Cholesterol 246 mg/dL (<=200); Globulin 2.7 g/dL (2.2-4.2); Glucose 90 mg/dL (70-99); Low Density Lipoprotein Calc. 138 mg/dL; Potassium 3.6 mmol/L (3.3-5.1); Triglycerides 234 mg/dL; Very Low Density Lipoprotein 47 mg/dL (5-40); cholesterol:hdl ratio screen 4.00
== END | disposition home or self-care (01) ==
LOC: LAB 12:03
PROVIDERS: PCP Internal Medicine; Referring Provider Internal Medicine; Visit Provider Internal Medicine
DX: E78.2 Mixed hyperlipidemia (principal)
CPT/HCPCS: 36415; 80053; 80061

== ENCOUNTER → 2025-01-17 | Outpatient (CLI) | payer OTHER, SELFPAY ==
--- OUTSIDE RECORDS SUMMARY | 2025-01-17 16:08 | XMS RPT_ITS | CCD ---
Author Organization [facility] Care Team Providers Care Maxillofacial Prosthodontist Name Role Phone PROVIDER, UNKNOWN Unavailable Unavailable Eduardo, Emre Unavailable Unavailable Eduardo, Emre Unavailable Unavailable Rose Mariee MD Supriya BOSCH Primary Care Provider U navailable MD Supriya Tamez Referring Provider Unav ailDr. Supriya Berkowitz Attending Provider [phone] Maxime ABDI, Dr. Epps Primary Care Provider Maxime ABDI, Dr. Epps Attending Provider [phone] Maxime ABDI, Dr. Epps Referring Provider [phone] Maxime ABDI, Dr. Epps Primary Care Physician Maxime ABDI, Dr. Epps Attending Physician [phone] Maxime ABDI, Dr. Epps Referring Provider [phone] Olepaco, Efewongbe Primary Care Unavailable Oleghe, Efewongbe Referring Unavailable Oleghe, Efewongbe Attending Unavailable Oleghe, Efewongbe Primary Care Unavailable Oleghe, Efewongbe Referring Unavailable Oleghe, Efewongbe Attending Unavailable Oleghe, Efewongbe Primary Care Unavailable Oleghe, Efewongbe Referring Unavailable Oleghe, Efewongbe Attending Unavailable Oleghe, Efewongbe Referring Unavailable Oleghe, Efewongbe Attending Unavailable Oleghe, Efewongbe Primary Care Unavailable Oleghe, Efewongbe Referring Unavailable Oleghe, Efewongbe Attending Unavailable Oleghe, Efewongbe Primary Care Unavailable Medications Current Medications Medication Drug Class(es) Dates Sig (Normalized) Sig (Original) atorvastatin 40 mg oral tablet (20 sources) HMG-CoA Reductase Inhibitor Start: 05-05-2021 End: 10-22-2024 take 1 tablet by mouth once daily Atorvastatin 40 mg tablet Active 40 mg PO DAILY 90 October 22, 2024 11:34am Complies with drug therapy Start: 02-09-2021 End: 05-05-2021 Atorvastatin 40 mg tablet Discontinued 20 mg PO DAILY 90 April 29, 2021 4:05pm May 05, 2021 5:09pm Start: 02-09-2021 End: 05-05-2021 take 20 mg by mouth once daily Atorvastatin Discontinu ed 20 MG PO DAILY 90 April 29, 2021 3:05pm May 05, 2021 4:09pm Start: 10-16-2020 End: 02-09-2021 take 1 tablet by mouth once daily Atorvastatin 40 mg tablet Discontinued 40 mg PO DAILY 90 October 16, 2020 5:27pm February 09, 2021 4:54pm Start: 05-21-2020 End: 10-16-2020 take 1 tablet by mouth once daily Atorvastatin (Lipitor) 20 mg tablet Discontinued 20 mg PO DAILY 90 September 29, 2020 4:11pm October 16, 2020 5:27pm meclizine hydrochloride 25 mg oral tablet (3 sources) Antiemetic Start: 04-29-2021 take 1 tablet by mouth twice daily as needed Meclizine 25 mg tablet Active 25 mg PO TWICE A DAY as needed for vertigo 60 April 29, 2021 1:00am Complies with drug therapy Completed/Discontinued Medications Medication Drug Class(es) Dates Sig (Normalized) Sig (Original) amLODIPine 5 mg oral tablet (20 sources) Dihydropyridine Calcium Channel Raj Start: 05-21-2020 End: 06-27-2024 take 1 tablet by mouth once daily Amlodipine (Norvasc) 5 mg tablet Discontinued 5 mg PO DAILY 90 October 28, 2020 11:39am April 29, 2021 4:05pm naproxen 250 mg oral tablet (3 sources) Nonsteroidal Anti-inflammatory Drug Start: 09-09-2020 End: 09-22-2020 take 250-500 mg by mouth every eight hours as needed for pain Naproxen 250 MG tablet Discontinued 250 - 500 mg PO EVERY 8 HOURS NEEDED as needed for MILD PAIN 30 September 09, 2020 12:00am September 22, 2020 9:39am norethindrone acetate 5 mg oral tablet (6 sources) Start: 05-08-2020 End: 08-27-2020 take 1 tablet by mouth twice daily Norethindrone Acetate (Aygestin) 5 mg tablet Discontinued 5 mg PO TWICE A DAY 60 2 May 08, 2020 11:01am August 27, 2020 3:04pm Start: 04-10-2020 End: 05-08-2020 take 1 tablet by mouth three times daily, then take 1 tablet by mouth twice daily Norethindrone Acetate (Aygestin) 5 mg tablet Discontinued 5 mg PO .COMPLEX 45 0 April 10, 2020 1:00am May 08, 2020 11:02am 5 mg PO tid until bleeding stops X 24 hr then bid to finish Rx oxyCODONE hydrochloride 5 mg oral capsule (3 sources) Opioid Agonist Start: 09-09-2020 End: 09-22-2020 take 1 capsule by mouth every six hours as needed for pain Oxycodone 5 mg capsule Discontinued 5 mg PO EVERY 6 HOURS as needed for pain 15 5 0 September 09, 2020 September 22, 2020 9:39am Status post hysterectomy Acquired absence of both cervix and uterus Problems Active Problems Problem Classification Problem Date Documented Date Episodic/Chronic Cardiac and circulatory congenital anomalies (3 sources) Ventricular septal defect; Translations: [Ventricular septal defect] 05-20-2020 Chronic Conditions associated with dizziness or vertigo (3 sources) Vertigo; Translations: [Dizziness and giddiness] 04-29-2021 Episodic Diabetes mellitus without complication (3 sources) Hyperglycemia; Translations: [Hyperglycemia, unspecified] 10-16-2020 Episodic Disorders of lipid metabolism (7 sources) Hyperlipidemia; Translations: [Hyperlipidemia, unspecified] Onset: 12-26-2024 04-29-2021 Chronic Essential hypertension (6 sources) Hypertensive disorder; Translations: [Essential (primary) hypertension] 04-29-2021 Chronic Other ear and sense organ disorders (2 sources) Tinnitus; Translations: [Tinnitus, unspecified ear] 11-30-2023 Episodic Other female genital disorders (3 sources) Abnormal uterine bleeding; Translations: [Abnormal uterine and vaginal bleeding, unspecified] 08-27-2020 Chronic Other lower respiratory disease (1 source) Cough; Translations: [Acute cough] 02-08-2021 Episodic Other lower respiratory disease (2 sources) Cough; Translations: [Acute cough] 02-08-2021 Episodic Other screening for suspected conditions (not mental disorders or infectious disease) (5 sources) Patient encounter status; Translations: [Encounter for screening for malignant neoplasm of colon] Onset: 06-27-2024 12-24-2020 Episodic Residual codes; unclassified (5 sources) Immunization not carried out because of patient refusal; Translations: [COVID-19 vaccination declined] 09-24-2020 Episodic Residual codes; unclassified (3 sources) Past history of procedure; Translations: [Other specified postprocedural states] 09-12-2020 Episodic Unclassified (2 sources) Contact with other sharp object(s), not elsewhere classified, initial encounter; Translations: [Contact with other sharp object(s), NEC, initial encounter] Onset: 12-06-2016 Unclassified (2 sources) Encounter for screening for malignant neoplasm of colon; Translations: [Z12.11 - Encounter for screening for malignant neoplasm of colon] Unclassified (1 source) Z00.00 - Encounter for general adult medical examination without abnormal findings Viral infection (3 sources) Disease caused by 2019-nCoV; Translations: [COVID-19] 02-08-2021 Episodic Past or Other Problems Problem Classification Problem Date Documented Da te Episodic/Chronic Open wounds of extremities (2 sources) Laceration without foreign body of right wrist, initial encounter; Translations: [Laceration without foreign body of right wrist, init encntr] Onset: 12-06-2016 Episodic Unclassified (3 sources) 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 10-23-2021 Results Test Name Value Interpretation Reference Range Facility Anion gap in Serum or Plasma Ordered By: Supriya Swartz on 12-26-2024 Anion gap [Moles/Vol] 14 mmol/L - [facility] BUN/creatinine ratioOrdered By: Supriya Swartz on 12-26-2024 Urea nitrogen/Creatinine [Mass ratio] 16.7 mg/mg - [facility] Bilirubin, totalOrdered By: Supriya Swartz on 12-26-2024 Bilirubin [Mass/Vol] 0.39 mg/dL 0.00-1.30 [facility] Calculated very low density lipoprotein (VLDL) cholesterol measurementOrdered By: Supriya Swartz on 12-26-2024 Calculated very low density lipoprotein (VLDL) cholesterol measurement 47 mg/dL High 5-40 [facility] Carbon dioxide, total [Moles /volume] in Central venous bloodOrdered By: Supriya Swartz on 12-26-2024 CO2 [Moles/Vol] 22.6 mmol/L 21.0-32.0 [facility] Chloride assayOrdered By: Siddharth Swartz on 12-26-2024 Chloride [Moles/Vol] 102 mmol/L 98-108 [facility] Comprehensive Metabolic Prof ilon 12-26-2024 Albumin [Mass/Vol] 4.5 g/dL Normal 3.5-5.0 [facility] Comment on above: Performed By: #### L 500.4100, L500.4050 #### [facility] [address] [place], [address] Albumin/Globulin [Mass ratio] 1.6 {ratio} Normal 0.9-2.4 [facility] Comment on above: Performed By: #### L 500.4100, L500.4050 #### [facility] [address] [place], [address] ALK PHOS 74 U/L Normal 35-104 [facility] Comment on above: Performed By: #### L 500.4100, L500.4050 #### [facility] [address] [place], [address] ALT [Catalytic activity/Vol] 24 U/L Normal <=34 [facility] Comment on above: Performed By: #### L 500.4100, L500.4050 #### [facility] [address] [place], [address] AST [Catalytic activity/Vol] 20 U/L Normal <=31 [facility] Comment on above: Performed By: #### L 500.4100, L500.4050 #### [facility] [address] [place], [address] Bilirubin [Mass/Vol] 0.39 mg/dL Normal 0.00-1.30 [facility] Comment on above: Performed By: #### L 500.4100, L500.4050 #### [facility] [address] [place], [address] BUN/CRE 16.7 RATIO Normal 10-20 [facility] Comment on above: Performed By: #### L 500.4100, L500.4050 #### [facility] [address] [place], [address] Calcium [Mass/Vol] 9.3 mg/dL Normal 7.6-11.0 [facility] Comment on above: Performed By: #### L 500.4100, L500.4050 #### [facility] [address] [place], [address] Chloride [Moles/Vol] 102 mmol/L Normal 98-108 [facility] Comment on above: Performed By: #### L 500.4100, L500.4050 #### [facility] [address] [place], [address] CO2 [Moles/Vol] 22.6 mmol/L Normal 21.0-32.0 [facility] Comment on above: Performed By: #### L 500.4100, L500.4050 #### [facility] [address] [place], [address] Creatinine [Mass/Vol] 0.79 mg/dL Normal 0.70-1.20 [facility] Comment on above: Performed By: #### L 500.4100, L500.4050 #### [facility] [address] [place], [address] GAP 14 Normal 5-15 [facility] Comment on above: Performed By: #### L 500.4100, L500.4050 #### [facility] [address] [place], [address] GFR/1.73 sq M.predicted among non-blacks MDRD (S/P/Bld) [Vol rate/Area] 92 mL/min/{1.73_m2} Normal >60 [facility] Comment on above: Result Comment: mL/m in/1.73m2 CKD-EPI Creatinine Equation (2020) Performed By: #### L 500.4100, L500.4050 #### [facility] [address] [place], [address] Globulin (S) [Mass/Vol] 2.7 g/dL Normal 2.2-4.2 [facility] Comment on above: Performed By: #### L 500.4100, L500.4050 #### [facility] [address] [place], [address] Glucose [Mass/Vol] 90 mg/dL Normal 70-99 [facility] Comment on above: Performed By: #### L 500.4100, L500.4050 #### [facility] [address] [place], [address] Potassium [Moles/Vol] 3.6 mmol/L Normal 3.3-5.1 [facility] Comment on above: Performed By: #### L 500.4100, L500.4050 #### [facility] [address] [place], [address] Sodium [Moles/Vol] 139 mmol/L Normal 133-145 [facility] Comment on above: Performed By: #### L 500.4100, L500.4050 #### [facility] [address] [place], [address] T PROT 7.2 g/dL Normal 5.9-8.4 [facility] Comment on above: Performed By: #### L 500.4100, L500.4050 #### [facility] [address] [place], [address] Urea nitrogen [Mass/Vol] 13 mg/dL Normal 4-19 [facility] Comment on above: Performed By: #### L 500.4100, L500.4050 #### [facility] [address] [place], [place], [address] Glomerular filtration rate ( GFR) estimation/1.73 sq m using serum, plasma, or whole bOrdered By: Supriya Swartz on 12-26-2024 GFR/1.73 sq M.predicted among non-blacks MDRD (S/P/Bld) [Vol rate/Area] 92 mL/min/{1.73_m2} >60 [facility] Comment on above: mL/min/1.73m2 CKD-EP I Creatinine Equation (2020) Internal Medicine Office Vis itobrissa 12-26-2024 Internal Medicine Office Visit [facility] Internal Medicine [address] [place] [address] [place] [address] OFFICE VISIT Date of Service: 12/26/24 MR#: [id number] Acct: [id number] Name: MADISON LI Rep #: [id number] : 1975 Provider: Dr. Supriya marquez MD Age/Sex: 48/F Location: [facility] Status: Signed Intake Vital Signs 06/27/24 16:18 06/27/24 16:33 Height 5 ft 4 in 5 ft 4 in Weight: 232 lb 4 oz BMI 39.9 BP 128/78 H Blood Pressure Location Lt brachial Position Sitting Respiration 16 Pulse 88 Pulse Source Monitor Temp 97 F L Temp Source Temporal Pulse Oximetry (%) 98 Oxygen Delivery Method room air Intake Visit Reasons: 6 M FU Chief Complaint: Follow-up Sterile Process Coordinator Required: No Accompanied by: Self Is patient in pain?: No Allergies No Known Allergies Allergy (Verified 12/26/24 13:20) Medications ???Medication ???Instructions ???Recorded ???Confirmed ???Type meclizine 25 mg tablet 25 mg PO BID PRN vertigo #60 tabs 04/29/21 12/26/24 Rx amlodipine 5 mg tablet (Norvasc) 5 mg PO DAILY #90 tabs 06/27/24 Rx atorvastatin 40 mg tablet 40 mg PO DAILY #90 tabs 10/22/24 0 12/26/24 Rx PFSH Medical History (Updated 12/26/24 @ 13:[address] 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 Surgical History History of partial hysterectomy H/O cystoscopy H/O bilateral salpingectomy History of tubal ligation Family History Father Heart disease blood clot blood transfusion Myocardial infarction Unknown Breast cancer Grandfather Myocardial infarction Uncle CVA (cerebral vascular accident) Mother CVA (cerebral vascular accident) Other Alcoholism Social History household members: spouse and children number of children: 1 current occupational status: employed current occupation: Service Now history of recent travel: No sexually active: Yes Smoking Status: Never smoker alcohol intake: current alcohol intake frequency: holidays/special occasions only substance use type: does not use what type of physical activity do you participate in: walking seatbelt use: sometimes do you feel safe at home: Yes additional social history: - Darren ORANTES HPI Chief Complaint: Follow-up Details: MADISON LI, is a 48-year-old female presenting for follow-up of her chronic medical conditions. She has a history of elevated blood pressure, previously recorded at 120/82 mmHg, and is currently measured at 128/78 mmHg at home. The patient reports that she is still taking amlodipine 5 mg daily for hypertension, although adherence is inconsistent, particularly on weekends, due to forgetfulness. Her assists in reminding her to take her medications. The patient also has a history of hyperlipidemia, for which she is prescribed atorvastatin, though she admits to occasionally forgetting to take it. Recent blood work shows that her total cholesterol has increased, but her triglyceride levels have improved, though they remain elevated. As above, has been inconsistent with taking her medication but states that she will make changes. There are significant stressors in her life, including a [id number] in the hospital, a close friend who recently underwent a mastectomy, and her own mother's recovery from a stroke, which has been challenging and has reportedly altered her mother's emotional and cognitive functions. Attestation: Documentation on this patient encounter was supported using ambient scribe technology/ voice AI technology. The patient consented to recording for the purpose of documenting the encounter. Provider reviewed content of the generated note prior to signature. ROS Const Constitutional: No body ache, excessive sweating, fatigue, fever(s), frequent falls, headache(s), snoring, weakness, weight change, sleep problems or change in appetite Eyes Eyes: No blurry vision, change in vision, vision loss, dry eyes, eye pain or Light sensitivity ENT ENT: No abnormal hearing, ear or mastoid pain, tinnitus, nasal congestion, headache(s), neck pain or sore throat Resp Respiratory: No cough, excessive phlegm production, hemoptysis, shortness of breath, snoring or wheezing Cardio Cardiology: No chest pain at rest, chest pain with exertion, excessive sweating, shortness of breath, dyspnea on exertion, lightheadedness, orthopnea or palpitations Gastro GI: No abdominal pain, change in bowel habits (more content not included)... Normal [facility] LDL calc ser/plasOrdered By: Supriya Swartz on 12-26-2024 Cholesterol in LDL [Mass/Vol] 138 mg/dL [facility] Comment on above: Qgwrfojpxq=160-781 m g/dL & Higher Fcso=515 mg/dL or greaterFriedwald Equation for LDL-C Laboratory - Chemistry and C hemistry - challengeOrdered By: Supriya Swartz on 12-26-2024 AST [Catalytic activity/Vol] 20 U/L <32 [facility] Lipid Profileon 12-26-2024 CHOL:HDL 4.00 Normal [facility] Comment on above: Performed By: #### L 500.4100, L500.4050 #### [facility] [address] [place], [place], [address] Cholesterol [Mass/Vol] 246 mg/dL High <=200 [facility] Comment on above: Result Comment: Chol esterol level, Desirable <200 mg/dL Borderline high cholesterol 200-239 mg/dL High cholesterol >=240 mg/dL Recommendations of the NCEP Adult Treatment Panel for the following risk-cutoff thresholds for the [place] population. Performed By: #### L 500.4100, L500.4050 #### [facility] [address] [place], [address] Cholesterol in HDL [Mass/Vol] 62 mg/dL Normal [facility] Comment on above: Result Comment: Aileen onal Cholesterol Education Program (NCEP) guidelines: <40 mg/dL: Low HDL-cholesterol (major risk factor for CHD) >= 60 mg/dL: High HDL-cholesterol (negative risk factor for CHD) HDL-cholesterol is affected by a number of factors, e.g. smoking, exercise, hormones, sex and age. Performed By: #### L 500.4100, L500.4050 #### [facility] [address] [place], [address] Cholesterol in LDL [Mass/Vol] 138 mg/dL Normal [facility] Comment on above: Result Comment: Bord ndbqvh=655-010 mg/dL Higher Btgc=441 mg/dL or greater Friedwald Equation for LDL-C Performed By: #### L 500.4100, L500.4050 #### [facility] [address] [place], [address] Cholesterol in VLDL [Mass/Vol] 47 mg/dL High 5-40 [facility] Comment on above: Performed By: #### L 500.4100, L500.4050 #### [facility] [address] [place], [address] Triglyceride [Mass/Vol] 234 mg/dL High [facility] Comment on above: Result Comment: The drugs N-Acetylcysteine and Metamizole may falsely depress this assay. Normal range: <150 mg/dL Borderline High: 150-199 mg/dL High: 200-499 mg/dL Very High: >500 mg/dL Performed By: #### L 500.4100, L500.4050 #### [facility] [place], [address] Potassium measurement (mass/ volume)Ordered By: Supriya Swartz on 12-26-2024 Potassium (Unsp spec) [Mass/Vol] 3.6 mmol/L 3.3-5.1 [facility] Screening total cholesterol/ high density lipoprotein (HDL) cholesterol ratioOrdered By: Supriya Swartz on 12-26-2024 Cholesterol.total/Choles terol in HDL [Mass ratio] 4.00 {ratio} [facility] Serum creatinine measurement (mass/volume)Ordered By: Supriya Swatrz on 12-26-2024 Creatinine [Mass/Vol] 0.79 mg/dL 0.70-1.20 [facility] Serum globulin measurementOr dered By: Supriya Swartz on 12-26-2024 Globulin (S) [Mass/Vol] 2.7 g/dL 2.2-4.2 [facility] Serum glucose measurement (m ass/volume)Ordered By: Supriya Swartz on 12-26-2024 Glucose [Mass/Vol] 90 mg/dL 70-99 [facility] Serum or plasma alanine melara otransferase (ALT) measurementOrdered By: Supriya Swartz on 12-26-2024 ALT [Catalytic activity/Vol] 24 U/L <35 [facility] Serum or plasma albumin anya urement (mass/volume)Ordered By: Supriya Swartz on 12-26-2024 Albumin [Mass/Vol] 4.5 g/dL 3.5-5.0 [facility] Serum or plasma albumin/glob ulin mass ratioOrdered By: Supriya Swartz on 12-26-2024 Albumin/Globulin [Mass ratio] 1.6 {ratio} 0.9-2.4 [facility] Serum or plasma alkaline esme sphatase measurementOrdered By: Supriya Swartz on 12-26-2024 ALP [Catalytic activity/Vol] 74 U/L 35-104 [facility] Serum or plasma calcium anya urement (mass/volume)Ordered By: Supriya Swartz on 12-26-2024 Calcium [Mass/Vol] 9.3 mg/dL 7.6-11.0 [facility] Serum or plasma cholesterol in HDL measurement (mass/volume)Ordered By: Supriya Swartz on 12-26-2024 Cholesterol in HDL [Mass/Vol] 62 mg/dL >40 [facility] Comment on above: National Cholesterol Education Program (NCEP) guidelines:<40 mg/dL: Low HDL-cholesterol (major risk factor for CHD)>= 60 mg/dL: High HDL-cholesterol (negative risk factor for CHD)HDL-cholesterol is affected by a number of factors, e.g. smoking, exercise, hormones, sex and age. Serum or plasma cholesterol measurement (mass/volume)Ordered By: Supriya Swartz on 12-26-2024 Cholesterol [Mass/Vol] 246 mg/dL High <201 [facility] Comment on above: Cholesterol level, D esirable <200 mg/dLBorderline high cholesterol 200-239 mg/dLHigh cholesterol >=240 mg/dLRecommendations of the NCEP Adult Treatment Panel for the following risk-cutoff thresholds for the [place] population. Serum or plasma urea nitroge n measurement (mass/volume)Ordered By: Supriya Swartz on 12-26-2024 Urea nitrogen [Mass/Vol] 13 mg/dL 4-19 [facility] Sodium levelOrdered By: Monroe Swartz on 12-26-2024 Sodium [Moles/Vol] 139 mmol/L 133-145 [facility] Total proteinOrdered By: Derek Swartz on 12-26-2024 Protein [Mass/Vol] 7.2 g/dL 5.9-8.4 [facility] Triglycerides measurementOrd ered By: Supriya Swartz on 12-26-2024 Triglyceride [Mass/Vol] 234 mg/dL High <199 [facility] Comment on above: The drugs N-Acetylcy steine and Metamizole may falsely depress this assay. Normal range: <150 mg/dLBorderline High: 150-199 mg/dLHigh: 200-499 mg/dLVery High: >500 mg/dL Absolute neutrophil countOrd ered By: Efkishan Swartz on 07-03-2024 Neutrophils (Bld) [#/Vol] 5.5 10*3/uL 2.0-7.7 [facility] Anion gap in Serum or Plasma Ordered By: Supriya Swartz on 07-03-2024 Anion gap [Moles/Vol] 12 mmol/L 5-15 [facility] BUN/creatinine ratioOrdered By: Supriya Swartz on 07-03-2024 Urea nitrogen/Creatinine [Mass ratio] 14.4 mg/mg 10-20 [facility] Basophil percentageOrdered B y: Supriya Swartz on 07-03-2024 Basophils/100 WBC (Bld) 0.6 % 0-1 [facility] Bilirubin, totalOrdered By: Siddharthkishan Swartz on 07-03-2024 Bilirubin [Mass/Vol] 0.17 mg/dL 0.00-1.30 [facility] CBC W/Diff, Automatedon Absolute Lymph 2.85 X10 3/uL Normal 0.83-4.51 [facility] Comment on above: Performed By: #### L 100.0100, L500.4100, L500.4050 #### [facility] [address] [place], [address] Absolute Neut 5.5 X10 3/uL Normal 2.0-7.7 [facility] Comment on above: Performed By: #### L 100.0100, L500.4100, L500.4050 #### [facility] [address] [place], [address] Basophils/100 WBC (Bld) 0.6 % Normal 0-1 [facility] Comment on above: Performed By: #### L 100.0100, L500.4100, L500.4050 #### [facility] [address] [place], [address] Eosinophils/100 WBC (Bld) 4.9 % Normal 0-5 [facility] Comment on above: Performed By: #### L 100.0100, L500.4100, L500.4050 #### [facility] [facility] [address] [place], [address] Erythrocyte distribution width (RBC) [Ratio] 12.5 % Normal 11.6-14.6 [facility] Comment on above: Performed By: #### L 100.0100, L500.4100, L500.4050 #### [facility] [address] [place], [address] Hematocrit (Bld) [Volume fraction] 41.1 % Normal 37-47 [facility] Comment on above: Performed By: #### L 100.0100, L500.4100, L500.4050 #### [facility] [address] [place], [address] Hemoglobin (Bld) [Mass/Vol] 14.0 g/dL Normal 12.0-15.0 [facility] Comment on above: Performed By: #### L 100.0100, L500.4100, L500.4050 #### [facility] [address] [place], [address] IG% 0.400 Normal 0.0-0.9 [facility] Comment on above: Result Comment: IG% - Immature Granulocytes (promyelocytes, myelocytes and metamyelocytes) > 1% indicates that a LEFT SHIFT is Present. Performed By: #### L 100.0100, L500.4100, L500.4050 #### [facility] [address] [place], [address] Lymphocytes/100 WBC (Bld) 29.7 % Normal 19-41 [facility] Comment on above: Performed By: #### L 100.0100, L500.4100, L500.4050 #### [facility] [address] [place], [address] MCH (RBC) [Entitic mass] 29.7 pg Normal 27.0-32.0 [facility] Comment on above: Performed By: #### L 100.0100, L500.4100, L500.4050 #### [facility] [address] [place], [address] MCHC (RBC) [Mass/Vol] 34.1 g/dL Normal 32-36 [facility] Comment on above: Performed By: #### L 100.0100, L500.4100, L500.4050 #### [facility] [address] [place], [address] MCV (RBC) [Entitic vol] 87.3 fL Normal 81-99 [facility] Comment on above: Performed By: #### L 100.0100, L500.4100, L500.4050 #### [facility] [address] [place], [address] Monocytes/100 WBC (Bld) 7.5 % Normal 0-10 [facility] Comment on above: Performed By: #### L 100.0100, L500.4100, L500.4050 #### [facility] [address] [place], [address] Neutrophils/100 WBC (Bld) 56.9 % Normal 47-70 [facility] Comment on above: Performed By: #### L 100.0100, L500.4100, L500.4050 #### [facility] [address] [place], [address] Nucleated RBC (Bld) [#/Vol] 0 10*3/uL Normal 0-5 [facility] Comment on above: Performed By: #### L 100.0100, L500.4100, L500.4050 #### [facility] [address] [place], [address] Platelet mean volume (Bld) [Entitic vol] 10.0 fL Normal 6.2-12.0 [facility] Comment on above: Performed By: #### L 100.0100, L500.4100, L500.4050 #### [facility] [address] [place], [address] Platelets (Bld) [#/Vol] 284 10*3/uL Normal 150-450 [facility] Comment on above: Performed By: #### L 100.0100, L500.4100, L500.4050 #### [facility] [address] [place], [address] RBC (Bld) [#/Vol] 4.71 10*6/uL Normal 4.2-5.4 [facility] Comment on above: Performed By: #### L 100.0100, L500.4100, L500.4050 #### [facility] [address] [place], [address] RDW SD 39.9 fl Normal 35.1-43.9 [facility] Comment on above: Performed By: #### L 100.0100, L500.4100, L500.4050 #### [facility] [address] [place], [address] WBC (Bld) [#/Vol] 9.6 10*3/uL Normal 4.4-11.0 [facility] Comment on above: Performed By: #### L 100.0100, L500.4100, L500.4050 #### [facility] [address] [place], [address] Calculated very low density lipoprotein (VLDL) cholesterol measurementOrdered By: Supriya Swartz on 07-03-2024 VLDL Cholesterol 81 mg/dL High 5-40 [facility] Carbon dioxide, total [Moles /volume] in Central venous bloodOrdered By: Supriya Swartz on 07-03-2024 CO2 [Moles/Vol] 25.9 mmol/L 21.0-32.0 [facility] Chloride assayOrdered By: Siddharth taideana Holbrookkeyannajordon on 07-03-2024 Chloride [Moles/Vol] 103 mmol/L 98-108 [facility] Comprehensive Metabolic Prof ilon 07-03-2024 Albumin [Mass/Vol] 4.3 g/dL Normal 3.5-5.0 [facility] Comment on above: Performed By: #### L 100.0100, L500.4100, L500.4050 #### [facility] [address] [place], [address] Albumin/Globulin [Mass ratio] 1.4 {ratio} Normal 0.9-2.4 [facility] Comment on above: Performed By: #### L 100.0100, L500.4100, L500.4050 #### [facility] [address] [place], [address] ALK PHOS 78 U/L Normal 35-104 [facility] Comment on above: Performed By: #### L 100.0100, L500.4100, L500.4050 #### [facility] [address] [place], [address] ALT [Catalytic activity/Vol] 16 U/L Normal <=34 [facility] Comment on above: Performed By: #### L 100.0100, L500.4100, L500.4050 #### [facility] [address] [place], [address] AST [Catalytic activity/Vol] 20 U/L Normal <=31 [facility] Comment on above: Performed By: #### L 100.0100, L500.4100, L500.4050 #### [facility] [address] [place], [address] Bilirubin [Mass/Vol] 0.17 mg/dL Normal 0.00-1.30 [facility] Comment on above: Performed By: #### L 100.0100, L500.4100, L500.4050 #### [facility] [address] [place], [address] BUN/CRE 14.4 RATIO Normal 10-20 [facility] Comment on above: Performed By: #### L 100.0100, L500.4100, L500.4050 #### [facility] [address] [place], [address] Calcium [Mass/Vol] 9.3 mg/dL Normal 7.6-11.0 [facility] Comment on above: Performed By: #### L 100.0100, L500.4100, L500.4050 #### [facility] [address] [place], [address] Chloride [Moles/Vol] 103 mmol/L Normal 98-108 [facility] Comment on above: Performed By: #### L 100.0100, L500.4100, L500.4050 #### [facility] [address] [place], [address] CO2 [Moles/Vol] 25.9 mmol/L Normal 21.0-32.0 [facility] Comment on above: Performed By: #### L 100.0100, L500.4100, L500.4050 #### [facility] [address] [place], [address] Creatinine [Mass/Vol] 0.78 mg/dL Normal 0.70-1.20 [facility] Comment on above: Performed By: #### L 100.0100, L500.4100, L500.4050 #### [facility] [address] [place], [address] GAP 12 Normal 5-15 [facility] Comment on above: Performed By: #### L 100.0100, L500.4100, L500.4050 #### [facility] [address] [place], [address] GFR/1.73 sq M.predicted among non-blacks MDRD (S/P/Bld) [Vol rate/Area] 92 mL/min/{1.73_m2} Normal >60 [facility] Comment on above: Result Comment: mL/m in/1.73m2 CKD-EPI Creatinine Equation (2020) Performed By: #### L 100.0100, L500.4100, L500.4050 #### [facility] [address] [place], [address] Globulin (S) [Mass/Vol] 3.1 g/dL Normal 2.2-4.2 [facility] Comment on above: Performed By: #### L 100.0100, L500.4100, L500.4050 #### [facility] [address] [place], [address] Glucose [Mass/Vol] 108 mg/dL High 70-99 [facility] Comment on above: Performed By: #### L 100.0100, L500.4100, L500.4050 #### [facility] [address] [place], [address] Potassium [Moles/Vol] 4.0 mmol/L Normal 3.3-5.1 [facility] Comment on above: Performed By: #### L 100.0100, L500.4100, L500.4050 #### [facility] [address] [place], [address] Sodium [Moles/Vol] 141 mmol/L Normal 133-145 [facility] Comment on above: Performed By: #### L 100.0100, L500.4100, L500.4050 #### [facility] [address] [place], [address] T PROT 7.4 g/dL Normal 5.9-8.4 [facility] Comment on above: Performed By: #### L 100.0100, L500.4100, L500.4050 #### [facility] [address], [place], [address] Urea nitrogen [Mass/Vol] 11 mg/dL Normal 4-19 [facility] Comment on above: Performed By: #### L 100.0100, L500.4100, L500.4050 #### [facility] [address] [place], [address] Eosinophil percentageOrdered By: Supriya Swartz on 07-03-2024 Eosinophils/100 WBC (Bld) 4.9 % 0-5 [facility] Erythrocyte distribution wid th (RBC) [Ratio]Ordered By: Supriya Swartz on 07-03-2024 Erythrocyte distribution width (RBC) [Entitic vol] 39.9 fL 35.1-43.9 [facility] Erythrocyte distribution wid th ratioOrdered By: tiafestusdilcai Swartz on 07-03-2024 Erythrocyte distribution width (RBC) [Ratio] 12.5 % 11.6-14.6 [facility] GFR/1.73 sq M.predicted vimal g non-blacks MDRD (S/P/Bld) [Vol rate/Area]Ordered By: Supriya Swartz on 07-03-2024 Estimated GFR (MDRD) Non-Af Amer 92 >60 [facility] Comment on above: mL/min/1.73m2 CKD-EP I Creatinine Equation (2020) Hematocrit Auto (Bld) [Volum e fraction]Ordered By: Supriya Swartz on 07-03-2024 Hematocrit (Bld) [Volume fraction] 41.1 % 37-47 [facility] Hemoglobin measurementOrdere d By: Supriya Swartz on 07-03-2024 Hemoglobin (Bld) [Mass/Vol] 14.0 g/dL 12.0-15.0 [facility] Immature granulocytes/100 WB C Auto (Bld)Ordered By: taifestusdilcia Swartz on 07-03-2024 Immature granulocytes/100 WBC (Bld) 0.400 % 0.0-0.9 [facility] Comment on above: IG% - Immature Granu locytes (promyelocytes, myelocytes and metamyelocytes) > 1% indicates that a LEFT SHIFT is Present. LDL calc ser/plasOrdered By: Supriya Swartz on 07-03-2024 LDL Cholesterol, Calculated 77 mg/dL [facility] Comment on above: Igbvpqfdnr=336-749 m g/dL & Higher Jwzv=334 mg/dL or greater Laboratory - Chemistry and C hemistry - challengeOrdered By: Supriya Swartz on 07-03-2024 AST [Catalytic activity/Vol] 20 U/L <32 [facility] Lipid Profileon 07-03-2024 CHOL:HDL 3.56 Normal [facility] Comment on above: Performed By: #### L 100.0100, L500.4100, L500.4050 #### [facility] [address] [place], [address] Cholesterol [Mass/Vol] 220 mg/dL High <=200 [facility] Comment on above: Result Comment: Chol esterol level, Desirable <200 mg/dL Borderline high cholesterol 200-239 mg/dL High cholesterol >=240 mg/dL Recommendations of the NCEP Adult Treatment Panel for the following risk-cutoff thresholds for the [place] population. Performed By: #### L 100.0100, L500.4100, L500.4050 #### [facility] [address] [place], [address] Cholesterol in HDL [Mass/Vol] 62 mg/dL Normal [facility] Comment on above: Result Comment: Aileen onal Cholesterol Education Program (NCEP) guidelines: <40 mg/dL: Low HDL-cholesterol (major risk factor for CHD) >= 60 mg/dL: High HDL-cholesterol (negative risk factor for CHD) HDL-cholesterol is affected by a number of factors, e.g. smoking, exercise, hormones, sex and age. Performed By: #### L 100.0100, L500.4100, L500.4050 #### [facility] [address] [place], [address] Cholesterol in LDL [Mass/Vol] 77 mg/dL Normal [facility] Comment on above: Result Comment: Bord wcfqaf=873-270 mg/dL Higher Tlhn=185 mg/dL or greater Performed By: #### L 100.0100, L500.4100, L500.4050 #### [facility] [address] [place], [address] Cholesterol in VLDL [Mass/Vol] 81 mg/dL High 5-40 [facility] Comment on above: Performed By: #### L 100.0100, L500.4100, L500.4050 #### [facility] [address] [place], [address] Triglyceride [Mass/Vol] 407 mg/dL High [facility] Comment on above: Result Comment: The drugs N-Acetylcysteine and Metamizole may falsely depress this assay. Normal range: <150 mg/dL Borderline High: 150-199 mg/dL High: 200-499 mg/dL Very High: >500 mg/dL Performed By: #### L 100.0100, L500.4100, L500.4050 #### [facility] [address] [place], [address] Lymphocytes Auto (Unsp spec) [#/Vol]Ordered By: Supriya Swartz on 07-03-2024 Lymphocytes (Bld) [#/Vol] 2.85 10*3/uL 0.83-4.51 [facility] Lymphocytes/100 WBC Auto (Un sp spec)Ordered By: Supriya Swartz on 07-03-2024 Lymphocytes/100 WBC (Bld) 29.7 % 19-41 [facility] MCV (mean corpuscular volume ) determinationOrdered By: Supriya Swartz on 07-03-2024 MCV (RBC) [Entitic vol] 87.3 fL 81-99 [facility] Mean corpuscular hemoglobin (MCH) determinationOrdered By: Supriya Swartz on 07-03-2024 MCH (RBC) [Entitic mass] 29.7 pg 27.0-32.0 [facility] Mean corpuscular hemoglobin concentration (MCHC) determinationOrdered By: Supriya Swartz on 07-03-2024 MCHC (RBC) [Mass/Vol] 34.1 g/dL 32-36 [facility] Mean platelet volume determi nationOrdered By: Supriya Swartz on 07-03-2024 Platelet mean volume (Bld) [Entitic vol] 10.0 fL 6.2-12.0 [facility] Monocyte percentageOrdered B y: Supriya Swartz on 07-03-2024 Monocytes/100 WBC (Bld) 7.5 % 0-10 [facility] Neutrophil percentageOrdered By: Supriya Swartz on 07-03-2024 Neutrophils/100 WBC (Bld) 56.9 % 47-70 [facility] Nucleated red blood cell per centageOrdered By: Supriya Swartz on 07-03-2024 Nucleated RBC/100 WBC (Bld) [Ratio] 0 % 0-5 [facility] Platelet countOrdered By: Siddharth Swartz on 07-03-2024 Platelets (Bld) [#/Vol] 284 10*3/uL 150-450 [facility] Potassium (Unsp spec) [Mass/ Vol]Ordered By: Supriya Swartz on 07-03-2024 Potassium [Moles/Vol] 4.0 mmol/L 3.3-5.1 [facility] RBC Auto (Bld) [#/Vol]Ordere d By: Supriya Swartz on 07-03-2024 RBC (Bld) [#/Vol] 4.71 10*6/uL 4.2-5.4 [facility] Screening total cholesterol/ high density lipoprotein (HDL) cholesterol ratioOrdered By: Supriya Swartz on 07-03-2024 Cholesterol.total/Choles terol in HDL [Mass ratio] 3.56 {ratio} [facility] Serum creatinine measurement (mass/volume)Ordered By: Supriya Swartz on 07-03-2024 Creatinine [Mass/Vol] 0.78 mg/dL 0.70-1.20 [facility] Serum globulin measurementOr dered By: Supriya Swartz on 07-03-2024 Globulin (S) [Mass/Vol] 3.1 g/dL 2.2-4.2 [facility] Serum glucose measurement (m ass/volume)Ordered By: Supriya Swartz on 07-03-2024 Glucose [Mass/Vol] 108 mg/dL High 70-99 [facility] Serum or plasma alanine melara otransferase (ALT) measurementOrdered By: Supriya Swatrz on 07-03-2024 ALT [Catalytic activity/Vol] 16 U/L <35 [facility] Serum or plasma albumin anya urement (mass/volume)Ordered By: Supriya Swartz on 07-03-2024 Albumin [Mass/Vol] 4.3 g/dL 3.5-5.0 [facility] Serum or plasma albumin/glob ulin mass ratioOrdered By: Supriya Swartz on 07-03-2024 Albumin/Globulin [Mass ratio] 1.4 {ratio} 0.9-2.4 [facility] Serum or plasma alkaline esme sphatase measurementOrdered By: Supriya Swartz on 07-03-2024 ALP [Catalytic activity/Vol] 78 U/L 35-104 [facility] Serum or plasma calcium anya urement (mass/volume)Ordered By: Supriya Swartz on 07-03-2024 Calcium [Mass/Vol] 9.3 mg/dL 7.6-11.0 [facility] Serum or plasma cholesterol in HDL measurement (mass/volume)Ordered By: Supriya Swartz on 07-03-2024 Cholesterol in HDL [Mass/Vol] 62 mg/dL >40 [facility] Comment on above: National Cholesterol Education Program (NCEP) guidelines:<40 mg/dL: Low HDL-cholesterol (major risk factor for CHD)>= 60 mg/dL: High HDL-cholesterol (negative risk factor for CHD)HDL-cholesterol is affected by a number of factors, e.g. smoking, exercise, hormones, sex and age. Serum or plasma cholesterol measurement (mass/volume)Ordered By: Supriya Swartz on 07-03-2024 Cholesterol [Mass/Vol] 220 mg/dL High <201 [facility] Comment on above: Cholesterol level, D esirable <200 mg/dLBorderline high cholesterol 200-239 mg/dLHigh cholesterol >=240 mg/dLRecommendations of the NCEP Adult Treatment Panel for the following risk-cutoff thresholds for the [place] population. Serum or plasma urea nitroge n measurement (mass/volume)Ordered By: Supriya Swartz on 07-03-2024 Urea nitrogen [Mass/Vol] 11 mg/dL 4-19 [facility] Sodium levelOrdered By: Monroe Swartz on 07-03-2024 Sodium [Moles/Vol] 141 mmol/L 133-145 [facility] Total proteinOrdered By: Derek Swartz on 07-03-2024 Protein [Mass/Vol] 7.4 g/dL 5.9-8.4 [facility] Triglycerides measurementOrd ered By: Supriya Swartz on 07-03-2024 Triglyceride [Mass/Vol] 407 mg/dL High <199 [facility] Comment on above: The drugs N-Acetylcy steine and Metamizole may falsely depress this assay. Normal range: <150 mg/dLBorderline High: 150-199 mg/dLHigh: 200-499 mg/dLVery High: >500 mg/dL White blood cell (WBC) count Ordered By: Supriya Swartz on 07-03-2024 WBC (Bld) [#/Vol] 9.6 10*3/uL 4.4-11.0 [facility] Internal Medicine Office Vis myke 06-27-2024 Internal Medicine Office Visit [facility] [address] [place] [address] [address] [place], [place] [address] OFFICE VISIT Date of Service: 06/27/24 MR#: [id number] Acct: [id number] Name: MADISON LI Rep #: [id number] : 1975 Provider: Dr. Supriya marquez MD Age/Sex: 48/F Location: [facility] Status: Signed Intake Vital Signs 11/30/23 15:52 06/27/24 16:18 Height 5 ft 4 in 5 ft 4 in Weight: 229 lb BMI 39.3 BP 120/82 H Blood Pressure Location Lt brachial Position Sitting Respiration 14 Pulse 66 Pulse Source Monitor Temp 97.4 F L Temp Source Temporal Pulse Oximetry (%) 99 Oxygen Delivery Method room air Intake Visit Reasons: 6 M FU Chief Complaint: Follow-up chronic conditions/yearly [employer] Coordinator Required: No Is patient in pain?: No Allergies No Known Allergies Allergy (Verified 11/30/23 15:40) Medications ???Medication ???Instructions ???Recorded ???Confirmed ???Type meclizine 25 mg tablet 25 mg PO BID PRN vertigo #60 tabs 04/29/21 06/27/24 Rx atorvastatin 40 mg tablet 40 mg PO DAILY #90 tabs 11/15/23 0 06/27/24 Rx amlodipine 5 mg tablet (Norvasc) 5 mg PO DAILY #90 tabs 06/27/24 Rx Nurse's Note: needs amlodipine refilled. 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 Surgical History History of partial hysterectomy H/O cystoscopy H/O bilateral salpingectomy History of tubal ligation Family History (Updated 06/27/24 @ 16:18 by Iona Vance MA) Father Heart disease blood clot blood transfusion Myocardial infarction Unknown Breast cancer Grandfather Myocardial infarction Uncle CVA (cerebral vascular accident) Mother CVA (cerebral vascular accident) Other Alcoholism Social History household members: spouse and children number of children: 1 current occupational status: employed current occupation: Service Now history of recent travel: No sexually active: Yes Smoking Status: Never smoker alcohol intake: current alcohol intake frequency: holidays/special occasions only substance use type: does not use what type of physical activity do you participate in: walking seatbelt use: sometimes do you feel safe at home: Yes additional social history: - [employer] HPI Chief Complaint: Follow-up chronic conditions/yearly Details: MADISON GUILLERMO, is a 48 F who presents to the office today for follow-up/yearly. No acute concerns at this time. Was referred to dermatology, general surgery a year ago however due to caring for her mother who just had a stroke and other life concerns, has not been able to schedule these visits. No dark or bloody stool or unintentional weight changes. No tobacco use. History of hysterectomy. History of hypertension which is well-controlled on current regimen. Also history of hyperlipidemia on atorvastatin, no muscle pain or weakness reported. ROS Const Constitutional: No body ache, chills, excessive sweating, fatigue, fever(s), frequent falls, headache(s), snoring, weakness, sleep problems or change in appetite Eyes Eyes: No blurry vision, change in vision, bulging eyes, floaters, visual disturbances, eye pain or Light sensitivity ENT ENT: No abnormal hearing, ear or mastoid pain, tinnitus, balance problems, nosebleed/epistaxis, nasal congestion, headache(s), neck pain or sore throat Resp Respiratory: No cough, excessive phlegm production, pain on inspiration, shortness of breath, snoring or wheezing Cardio Cardiology: No chest pain at rest, chest pain with exertion, excessive sweating, shortness of breath, dyspnea on exertion, lightheadedness, orthopnea or palpitations Gastro GI: No abdominal pain, change in bowel habits, constipation, cramping, diarrhea, nausea/dyspepsia or vomiting Genitourinary-Female : No burning urination, painful urination, urinary incontinence, urinary frequency, abnormal vaginal bleeding or pelvic pain Musc Musculoskeletal: No abnormal gait, joint pain, back pain, limited range of motion, neck pain or numbness Skin Skin: No dry skin, redness, excessive hair growth, yellowing of the eye, lesions, itchy eyes, rash or wounds Neuro Neurology: No abnormal gait, abnormal hearing, behavioral changes, unsteady gait/balance, weakness, frequent falls, headache(s), memory loss, numbness or visual disturbances Psych Psychiatric: No anxiety, No behavioral changes, No change in appetite, No depression, No memory loss and No Thoughts of harming yourself/Others Endo E (more content not included)... Normal [facility] Absolute lymphocyte countOrd ered By: Supriya Swartz on 06-01-2023 Lymphocytes Auto (Unsp spec) [#/Vol] 2.85 10*3/uL 0.83-4.51 [facility] Automated lymphocyte count a s percentage of total leukocytesOrdered By: Supriya Swartz on 06-01-2023 Lymphocytes/100 WBC Auto (Unsp spec) 30.3 % 19-41 [facility] Basophil percentageOrdered B y: Supriya Swartz on 06-01-2023 Basophils/100 WBC (Bld) 0.5 % 0-1 [facility] Bilirubin [Mass/Vol] 0.50 mg/dL 0.20-1.00 [facility] Comment on above: For patients on eltr ombopag therapy, use of Dimension Gunter TBIL is not recommended. Chloride [Moles/Vol] 103 mmol/L 98-107 [facility] Cholesterol [Mass/Vol] 224 mg/dL <200 [facility] Comment on above: <200 mg/dL Desirable 200-240 mg/dL Borderline >240 mg/dL High Risk Eosinophils/100 WBC (Bld) 2.6 % 0-5 [facility] Glucose [Mass/Vol] 92 mg/dL 74-106 [facility] Hemoglobin (Bld) [Mass/Vol] 13.8 g/dL 12.0-15.0 [facility] Monocytes/100 WBC (Bld) 7.2 % 0-10 [facility] Neutrophils (Bld) [#/Vol] 5.5 10*3/uL 2.0-7.7 [facility] Neutrophils/100 WBC (Bld) 59.0 % 47-70 [facility] Potassium [Moles/Vol] 3.9 mmol/L 3.5-5.1 [facility] Protein [Mass/Vol] 7.5 g/dL 6.4-8.2 [facility] Sodium [Moles/Vol] 138 mmol/L 136-145 [facility] Triglyceride [Mass/Vol] 240 mg/dL <199 [facility] Comment on above: The drugs N-Acetylcy steine and Metamizole may falsely depress this assay.Serum Triglycerides Reference Interval Normal <150 mg/dL Borderline high 150 - 199 mg/dL High 200 - 499 mg/dL Very High > or = 500 mg/dL WBC (Bld) [#/Vol] 9.4 10*3/uL 4.4-11.0 [facility] Determination of erythrocyte mean corpuscular volume (MCV)Ordered By: Supriya Swartz on 06-01-2023 MCV (RBC) [Entitic vol] 89.7 fL 81-99 [facility] Erythrocyte distribution wid th ratioOrdered By: [facility] Yusefjordon on 06-01-2023 Erythrocyte distribution width (RBC) [Ratio] 12.3 % 11.6-14.6 [facility] Erythrocyte distribution wid th standard deviationOrdered By: [facility] Erythrocyte distribution width (RBC) [Entitic vol] 40.4 fL 35.1-43.9 [facility] Hematocrit Auto (Bld) [Volum e fraction]Ordered By: [facility] Yusefjordon on 06-01-2023 Hematocrit (Bld) [Volume fraction] 41.9 % 37-47 [facility] Immature granulocytes/100 WB C Auto (Bld)Ordered By: [facility] Yusefjordon on 06-01-2023 Immature granulocytes/100 WBC (Bld) 0.400 % 0.0-0.9 [facility] Comment on above: IG% - Immature Granu locytes (promyelocytes, myelocytes and metamyelocytes) > 1% indicates that a LEFT SHIFT is Present. Laboratory - Chemistry and C hemistry - challengeOrdered By: [facility] Yusefjordon on 06-01-2023 Albumin/Globulin [Mass ratio] 1.0 {ratio} 0.9-2.4 [facility] ALP [Catalytic activity/Vol] 61 U/L 45-117 [facility] ALT [Catalytic activity/Vol] 38 U/L 13-56 [facility] Cholesterol in HDL [Mass/Vol] 66 mg/dL >40 [facility] Comment on above: The drugs N-Acetylcy steine and Metamizole may falsely depress this assay. Reference Range HDL <40 mg/dL Low HDL Cholesterol HDL >or= 60 mg/dL High HDL Cholesterol Cholesterol in LDL [Mass/Vol] 110 mg/dL 0-130 [facility] CO2 [Moles/Vol] 27.0 mmol/L 21.0-32.0 [facility] Globulin (S) [Mass/Vol] 3.8 g/dL 2.2-4.2 [facility] Urea nitrogen/Creatinine [Mass ratio] 20.9 mg/mg 10-20 [facility] Laboratory - Hematology and Cell countsOrdered By: Supriya Swartz on 06-01-2023 MCH (RBC) [Entitic mass] 29.6 pg 27.0-32.0 [facility] MCHC (RBC) [Mass/Vol] 32.9 g/dL 32-36 [facility] Nucleated RBC/100 WBC (Bld) [Ratio] 0 % 0-5 [facility] Platelet mean volume (Bld) [Entitic vol] 9.8 fL 6.2-12.0 [facility] Platelets (Bld) [#/Vol] 242 10*3/uL 150-450 [facility] No Panel InformationOrdered By: Supriya Swartz on 06-01-2023 Estimated GFR (MDRD) Amer 96 mL/min >60 [facility] Comment on above: GFR Calc Estimated GFR (MDRD) Non-Af Amer 79 mL/min >60 [facility] Comment on above: Non- GFR Calc VLDL Cholesterol 48 mg/dL 5-40 [facility] RBC Auto (Bld) [#/Vol]Ordere d By: Supriya Swartz on 06-01-2023 RBC (Bld) [#/Vol] 4.67 10*6/uL 4.2-5.4 [facility] Serum or plasma calcium anya urement (mass/volume)Ordered By: Supriya Swartz on 06-01-2023 Calcium [Mass/Vol] 9.2 mg/dL 8.5-10.1 [facility] Serum or plasma creatinine m easurement (mass/volume)Ordered By: Supriya Swartz on 06-01-2023 Creatinine [Mass/Vol] 0.81 mg/dL 0.55-1.02 [facility] Comment on above: The validity of the calculated GFR & GFRAA in patients over 70 years has not been determined. Clinical correlation is essential. Serum or plasma urea nitroge n measurement (mass/volume)Ordered By: Supriya Swartz on 06-01-2023 Urea nitrogen [Mass/Vol] 17 mg/dL 7-18 [facility] Thin prep Papanicolaou smear with manual screeningOrdered By: Supriya Swartz on 06-01-2023 Thin prep Papanicolaou smear with manual screening 3.7 g/dL 3.2-5.0 [facility] Thin prep Papanicolaou smear with manual screening 19 U/L 15-37 [facility] Thin prep Papanicolaou smear with manual screening 8 5-15 [facility] US DOPPLER COMPLETEon 2018 US DOPPLER COMPLETE * * *Final Report* * * DATE OF EXAM: Sep 06 2018 8:16AM PEPE 1033 - US DOPPLER COMPLETE / PROCEDURE REASON: N88.8-Cervical mass * * * * Physician Interpretation * * * * EXAMINATION: TRANSVAGINAL AND LIMITED TRANSABDOMINAL PELVIC ULTRASOUND HISTORY: Cervical mass TECHNIQUE: Sonography of the pelvis was performed by transvaginal and transabdominal (limited) techniques. Images were obtained and stored in a permanent archive. MQ: UFP_1 COMPARISON: 08/15/2018 FLMP: 08/18/2018 RESULT: Uterus size: 8.8 x 4.0 x 5.2 cm -Orientation: Anteverted -Myometrium: Normal -Endometrial echo complex: 1.1 cm -Cervix: No polypoid lesion demonstrated on the present study. Right ovary: Not seen Left ovary: 3.1 x 1.8 x 2.6 cm Pelvis free fluid: None seen IMPRESSION: No polypoid lesion demonstrated in the endocervical canal on the present study. Bearingizer: PSCRyder Transcribe Date/Time: Sep 06 2018 8:31A Dictated by : JULIET MCFARLAND DO This examination was interpreted and the report reviewed and electronically signed by: JULIET MCFARLAND DO on Sep 06 2018 5:33PM EST [id number] [facility] US FEMALE PELVIS TRANSVAGon 09-06-2018 US FEMALE PELVIS TRANSVAG * * *Final Report* * * DATE OF EXAM: Sep 06 2018 8:16AM PEPE 1060 - US FEMALE PELVIS TRANSVAG / PROCEDURE REASON: N88.8-Cervical mass * * * * Physician Interpretation * * * * EXAMINATION: TRANSVAGINAL AND LIMITED TRANSABDOMINAL PELVIC ULTRASOUND HISTORY: Cervical mass TECHNIQUE: Sonography of the pelvis was performed by transvaginal and transabdominal (limited) techniques. Images were obtained and stored in a permanent archive. MQ: UFP_1 COMPARISON: 08/15/2018 FLMP: 08/18/2018 RESULT: Uterus size: 8.8 x 4.0 x 5.2 cm -Orientation: Anteverted -Myometrium: Normal -Endometrial echo complex: 1.1 cm -Cervix: No polypoid lesion demonstrated on the present study. Right ovary: Not seen Left ovary: 3.1 x 1.8 x 2.6 cm Pelvis free fluid: None seen IMPRESSION: No polypoid lesion demonstrated in the endocervical canal on the present study. Bearingizer: CAITIE Transcribe Date/Time: Sep 06 2018 8:31A Dictated by : JULIET MCFARLAND DO This examination was interpreted and the report reviewed and electronically signed by: JULIET MCFARLAND DO on Sep 06 2018 5:33PM EST [id number] [facility] Office Visit (OBGMEM) [place] LI ([id number]) 1975 F Date Time Provider Department 08/29/18 2:45 PM CASANDRA ROMO OBANTOINETTEEM During your visit today, we recorded the following information about you: Blood pressure Weight 110/58 97.1 kg Casandra Romo MD 08/29/2018 3:39 PM Signed Patient presents after ultrasound for irregular bleeding showed cervical mass, suspected polyp. She had a colposcopy however this was normal without polypoid tissue obtained. She notes that she had very heavy bleeding and passage of large clots this last weekend. She wonders if she could have passed what was seen on ultrasound. Reviewed: PMHX PSHx FHx Meds Allergies Discussed expt mgmt vs. DANDC with hysteroscopy for further evaluation and excision of any noted findings. A/P: irregular bleeding, tissue in cervix - patient elects to proceed with pelvic US and will proceed with DANDC, hysteroscopy if mass still visualized. - plan for after September 09 Referring Provider: CASANDRA ROMO [[id number]] Allergies As of Date: 08/29/2018 (No Known Allergies) Date Reviewed: 08/29/2018 Reviewed by: Casandra Light - Fully Assessed Reason for Visit: Established Patient [175] Cmt: us follow up Primary Visit Diagnosis:Cervical mass [N88.8] Order(s): FEMALE PELVIS TRANSVAG [[id number]] Order #: [id number] FUTURE Prescriptions as of 08/29/2018 Sig: NORGESTIMATE 0.25 MG-ETHINYL * Take 1 tablet by mouth once d* Patient not taking: Reported on 08/29/2018 NORGESTIMATE 0.25 MG-ETHINYL * Take 1 tablet by mouth once d* Patient not taking: Reported on 07/26/2018 Problem List As Of Date 08/29/2018 Noted Resolved Routine gynecological examination [Z01.419] INVALID FOR* More... Well adult exam [Z00.00] INVALID FOR* More... Obesity (BMI 30-39.9) [E66.9] INVALID FOR* Hyperlipidemia [E78.5] INVALID FOR* Abnormal uterine bleeding (AUB) [N93.9] INVALID FOR* Encounter Status:Closed by CASANDRA ROMO MD on 08/29/18 [facility] Protein mass conc HNO ID: [id number] Author: Casandra Romo Service: ? Author Type: Physician Type: Progress Notes Filed: 08/29/2018 3:39 PM Note Text: Patient presents after ultrasound for irregular bleeding showed cervical mass, suspected polyp. She had a colposcopy however this was normal without polypoid tissue obtained. She notes that she had very heavy bleeding and passage of large clots this last weekend. She wonders if she could have passed what was seen on ultrasound. Reviewed: PMHX PSHx FHx Meds Allergies Discussed expt mgmt vs. DANDC with hysteroscopy for further evaluation and excision of any noted findings. A/P: irregular bleeding, tissue in cervix - patient elects to proceed with pelvic US and will proceed with DANTX, hysteroscopy if mass still visualized. - plan for after September 09 Normal [facility] CNOVon 08-17-2018 CNOV Office Visit (OBGMEM) [place] LI ([id number]) 1975 F Date Time Provider Department 08/17/18 1:30 PM CASANDRA ORMO During your visit today, we recorded the following information about you: Blood pressure Weight 138/78 98.4 kg Casandra Romo MD 08/17/2018 2:14 PM Signed [place] Escobar Guillermo is a 42 year old female who presents for colposcopy due to unsatisfactory pap smear x2. Additionally she had been complaining of irregular bleeding and had a pelvic US which revealed suspected polyp extending into the cervical canal. CONTRACEPTION: tubal ligation PAST HISTORIES: PAST MEDICAL HISTORY Diagnosis Date - Abnormal uterine bleeding (AUB) 09/06/2014 - S/P tubal ligation - Vaginal delivery PAST SURGICAL HISTORY Procedure Laterality Date - SALPINGECTOMY 03/2005 L/S BTL Falope rings FAMILY HISTORY Problem Relation Age of Onset - Alzheimer's Disease Paternal Grandmother - Coronary Artery Disease Father 63 - Hypertension Father - Lipids Father - Coronary Artery Disease Paternal Uncle 60's - Breast Cancer Other pat cousin - Uterine Cancer No Family History SOCIAL HISTORY Social History Tobacco Use - Smoking status: Never Smoker - Smokeless tobacco: Never Used Substance Use Topics - Alcohol use: Yes Comment: occasional - Drug use: No No data was found ALLERGIES: ALLERGIES No Known Allergies MEDICATIONS: norgestimate 0.25 mg-ethinyl estradiol 35 mcg (MONONESSA) 0.25-35 mg-mcg per tablet Take 1 tablet by mouth once daily. norgestimate 0.25 mg-ethinyl estradiol 35 mcg (SPRINTEC) 0.25-35 mg-mcg per tablet Take 1 tablet by mouth once daily. PHYSICAL EXAMINATION: There were no vitals taken for this visit. General: healthy HEENT: Normocephalic, Eyes: conjunctiva/corneas normal, EOMI, Nasreen: no lesions, no rash, no hirsutism Urethra: normal meatus, no caruncle, no discharge, non-tender, no masses, no scarring Bladder: non-tender Abdomen: soft, nontender, nondistended Genital Urinary: normal external female genitalia without lesions Pelvic: Normal external genitalia, normal vagina and normal vaginal tone, normal cervix, normal uterus, size and consistency and normal adnexa without tenderness. Vagina: no lesion, no cystocele, no rectocele, no enterocele, no discharge, Cervix: no inflammation, no discharge, no lesions, no stenosis Risk factors addressed: HPV: negative Gardisil Vaccine: negative Test: Urine test: negative Procedure: Colposcopy (cervix) The Speculum was placed in the vaginal vault. Acetic acid was applied to the cervix. A biopsy was taken at 12 oclock where minimal white was noted. The atiya forcepts were introduced into the cervical cancal and while no soft tissue was identified or removed, a denser lesion was palpated within the endocervical canal. Ecc was performed. Hemostasis was achieved with direct pressure. The patient tolerated the procedure well. IMPRESSION/PLAN: 1. Unsatisfactory pap smear Satisfactory colpo performed today. Biopsy taken at 12 oclock. Ecc performed. The patient tolerated the procedure well. She will abstain from intercourse for 2 weeks and will follow up for results. Alvarez Barrientos 08/17/2018 2:32 PM Signed Addended by: ALVAREZ BARRIENTOS on: 08/17/2018 02:32 PM Modules accepted: Orders Referring Provider: CASANDRA ROMO [[id number]] Allergies As of Date: 08/17/2018 (No Known Allergies) Date Reviewed: 08/17/2018 Reviewed by: Alvarez Barrientos - Fully Assessed Reason for Visit: Colposcopy [1551] Primary Visit Diagnosis:Unconfirme d [Z32.00] Other Visit Diagnoses:Unsatisfac tory cervical Papanicolaou smear [R87.615] Cervical mass [N88.8] Order(s):SURGICAL PATHOLOGY [[id number]] Order #: [id number] HCG QUAL UR B/O [[id number]] Order #: [id number] Prescriptions as of 08/17/2018 Sig: NORGESTIMATE 0.25 MG-ETHINYL * Take 1 tablet by mouth once d* NORGESTIMATE 0.25 MG-ETHINYL * Take 1 tablet by mouth once d* Patient not taking: Reported on 07/26/2018 Problem List As Of Date 08/17/2018 Noted Resolved Routine gynecological examination [Z01.419] INVALID FOR* More... Well adult exam [Z00.00] INVALID FOR* More... Obesity (BMI 30-39.9) [E66.9] INVALID FOR* Hyperlipidemia [E78.5] INVALID FOR* Abnormal uterine bleeding (AUB) [N93.9] INVALID FOR* Encounter Status:Closed by CASANDRA ROMO MD on 08/17/18 Normal [facility] PROGRESSon 08-17-2018 Protein mass conc HNO ID: [id number] Author: Casandra Romo Service: ? Author Type: Physician Type: Progress Notes Filed: 08/17/2018 2:14 PM Note Text: [place] Escobar Meng is a 42 year old female who presents for colposcopy due to unsatisfactory pap smear x2. Additionally she had been complaining of irregular bleeding and had a pelvic US which revealed suspected polyp extending into the cervical canal. CONTRACEPTION: tubal ligation PAST HISTORIES: PAST MEDICAL HISTORY Diagnosis Date - Abnormal uterine bleeding (AUB) 09/06/2014 - S/P tubal ligation - Vaginal delivery PAST SURGICAL HISTORY Procedure Laterality Date - SALPINGECTOMY 03/2005 L/S BTL Falope rings FAMILY HISTORY Problem Relation Age of Onset - Alzheimer's Disease Paternal Grandmother - Coronary Artery Disease Father 63 - Hypertension Father - Lipids Father - Coronary Artery Disease Paternal Uncle 60's - Breast Cancer Other pat cousin - Uterine Cancer No Family History SOCIAL HISTORY Social History Tobacco Use - Smoking status: Never Smoker - Smokeless tobacco: Never Used Substance Use Topics - Alcohol use: Yes Comment: occasional - Drug use: No No data was found ALLERGIES: ALLERGIES No Known Allergies MEDICATIONS: norgestimate 0.25 mg-ethinyl estradiol 35 mcg (MONONESSA) 0.25-35 mg-mcg per tablet Take 1 tablet by mouth once daily. norgestimate 0.25 mg-ethinyl estradiol 35 mcg (SPRINTEC) 0.25-35 mg-mcg per tablet Take 1 tablet by mouth once daily. PHYSICAL EXAMINATION: There were no vitals taken for this visit. General: healthy HEENT: Normocephalic, Eyes: conjunctiva/corneas normal, EOMI, Nasreen: no lesions, no rash, no hirsutism Urethra: normal meatus, no caruncle, no discharge, non-tender, no masses, no scarring Bladder: non-tender Abdomen: soft, nontender, nondistended Genital Urinary: normal external female genitalia without lesions Pelvic: Normal external genitalia, normal vagina and normal vaginal tone, normal cervix, normal uterus, size and consistency and normal adnexa without tenderness. Vagina: no lesion, no cystocele, no rectocele, no enterocele, no discharge, Cervix: no inflammation, no discharge, no lesions, no stenosis Risk factors addressed: HPV: negative Gardisil Vaccine: negative Test: Urine test: negative Procedure: Colposcopy (cervix) The Speculum was placed in the vaginal vault. Acetic acid was applied to the cervix. A biopsy was taken at 12 oclock where minimal white was noted. The atiya forcepts were introduced into the cervical cancal and while no soft tissue was identified or removed, a denser lesion was palpated within the endocervical canal. Ecc was performed. Hemostasis was achieved with direct pressure. The patient tolerated the procedure well. IMPRESSION/PLAN: 1. Unsatisfactory pap smear Satisfactory colpo performed today. Biopsy taken at 12 oclock. Ecc performed. The patient tolerated the procedure well. She will abstain from intercourse for 2 weeks and will follow up for results. Normal [facility] SURGICAL PATHOLOGYon 019 SURGICAL PATHOLOGY Specimen originated from [facility] Specimen #: [id number] Submitting Physician: CASANDRA ROMO FINAL DIAGNOSIS 1. Cervix, 12 o'clock, biopsy (A) - Transformation zone mucosa with benign reactive changes. 2. Endocervix, curettage (B) - Endocervical mucosa with benign reactive changes. Mariela Kothari MD (Electronic Signature) SPECIMEN SUBMITTED A: #1 ECTOCERVIX, 12 O'CLOCK, BIOPSY B: #2 ENDOCERVICAL, CURETTINGS CLINICAL DATA RECURRENT UNSATISFACTORY PAP, IRREGULAR BLEEDING GROSS DESCRIPTION A. Received in formalin is one piece of begum, soft tissue measuring up 0.4 x 0.3 x 0.2 cm. Totally submitted in one cassette. B. Received in formalin are multiple red-brown, segments of mucinous material aggregating to 2.8 x 2.2 x 0.5 cm. Totally submitted in one cassette. Gross examination performed at [facility], [address] [place] [address] 08/18/2018 1:48:52 PM Date of Report: 08/21/2018 Date of Procedure: 08/17/2018 Date of Receipt: 08/17/2018 Submitted by: CASANDRA ROMO Location: [facility] Diagnostic interpretation performed at [place] [address]. CLIA Number: [id number] Normal [facility] US FEMALE PELV TRANSABD COMP Magali 08-15-2018 US FEMALE PELV TRANSABD COMPLETE * * *Final Report* * * DATE OF EXAM: Aug 15 2018 8:03AM PEPE 1065 - US FEMALE PELV TRANSABD COMPLETE / PROCEDURE REASON: N92.6-Irregular bleeding * * * * Physician Interpretation * * * * EXAMINATION: TRANSVAGINAL AND LIMITED TRANSABDOMINAL PELVIC ULTRASOUND CLINICAL HISTORY: Regular bleeding times years TECHNIQUE: Sonography of the pelvis was performed by transvaginal and transabdominal (limited) techniques. Images were obtained and stored in a permanent archive. MQ: UFP_1 COMPARISON: September 07, 2017 RESULT: Uterus size: 8.8 x 4.7 x 5.9 cm -Orientation: Anteverted -Myometrium: Normal sonographic appearance. -Endometrial echo complex: 1.6 cm -Cervix: Prominent soft tissue within the cervical canal. Fluid is noted within the cervical canal. Right ovary: 3.3 x 3.5 x 2.4 cm Normal sonographic appearance. Left ovary: 2.5 x 2.2 x 1.8 cm Normal sonographic appearance. Pelvis free fluid: IMPRESSION: Polyp versus mass involving the mid to superior cervix with extension into the cervical canal. Direct visualization and biopsy may be helpful. Fluid is also noted within the cervical canal. Prominence of the endometrial complex. This is likely related to timing of the patient's current menstrual cycle. Normal appearance of the ovaries. Bearingizer: PSCB Transcribe Date/Time: Aug 15 2018 2:30P Dictated by : ZACH VILLA MD This examination was interpreted and the report reviewed and electronically signed by: ZACH VILLA MD on Aug 15 2018 2:36PM EST [id number] CN [facility] FEMALE PELVIS TRANSVAGon 08-15-2018 US FEMALE PELVIS TRANSVAG * * *Final Report* * * DATE OF EXAM: Aug 15 2018 8:02AM U 1060 - US FEMALE PELVIS TRANSVAG / PROCEDURE REASON: N92.6-Irregular bleeding * * * * Physician Interpretation * * * * EXAMINATION: TRANSVAGINAL AND LIMITED TRANSABDOMINAL PELVIC ULTRASOUND CLINICAL HISTORY: Regular bleeding times years TECHNIQUE: Sonography of the pelvis was performed by transvaginal and transabdominal (limited) techniques. Images were obtained and stored in a permanent archive. MQ: UFP_1 COMPARISON: September 07, 2017 RESULT: Uterus size: 8.8 x 4.7 x 5.9 cm -Orientation: Anteverted -Myometrium: Normal sonographic appearance. -Endometrial echo complex: 1.6 cm -Cervix: Prominent soft tissue within the cervical canal. Fluid is noted within the cervical canal. Right ovary: 3.3 x 3.5 x 2.4 cm Normal sonographic appearance. Left ovary: 2.5 x 2.2 x 1.8 cm Normal sonographic appearance. Pelvis free fluid: IMPRESSION: Polyp versus mass involving the mid to superior cervix with extension into the cervical canal. Direct visualization and biopsy may be helpful. Fluid is also noted within the cervical canal. Prominence of the endometrial complex. This is likely related to timing of the patient's current menstrual cycle. Normal appearance of the ovaries. Bearingizer: CAITIE Transcribe Date/Time: Aug 15 2018 2:30P Dictated by : ZACH VILLA MD This examination was interpreted and the report reviewed and electronically signed by: ZACH VILLA MD on Aug 15 2018 2:36PM EST [id number] [facility] CNOVon 07-26-2018 CNOV Office Visit (OBGMEM) [place] LI ([id number]) 1975 F Date Time Provider Department 07/26/18 8:45 AM CASANDRA ROMO During your visit today, we recorded the following information about you: Pulse Blood pressure Weight Last Period 74/minute 172/81 97.9 kg 06/19/18 Casandra Romo MD 07/26/2018 9:15 AM Signed Patient presents with irregular bleeding. Has had continuous light bleeding with intermittent heavier bleeding for the past 4-5 weeks. This is the first time this has happened where it is light. In the past, irregular bleeding has been heavy and she has been treated with BCP which resolved it. Also notes increased vaginal discharge approximately 3-4 mo ago, not blood, but increase in volume with odor, no itching. TSH done 08/2017 with normal T4 Pap unsat in 2018 - will recollect today at patient's request Reviewed and updated in Epic: PMHX PSHx FHx Meds Allergies ROS - denies RENEE, blurry vision, ringing in ears, changes to taste or smell, difficulty swallowing, nausea, vomiting, pain with urination, blood in the stools, numbness or weakness, no concerns with intercourse, no chest pain or SOB PE Gen - well nurished, no distress HEENT - atraumatic, pink moist mucus membranes Abd - soft, NT - no external lesions, no vaginal lesions, no cervical lesions, bimanual exam reveals no cervical motion tenderness, mobile uterus, no adnexal masses or tenderness, minimal blood in vault Ext - +5 strength bilaterally A/P: Irregular bleeding Options discussed regarding treatment for abnormal bleeding including estrogen and progesterone combination pills/patches/rings, progesterone options of Depo provera/Nexplanon/Mi mary IUD, non-hormonal therapy with lysteda, NovaSure endometrial ablation, DANDC with or without hysteroscopy, or hysterectomy in light of other existing issues as noted above. - patient elects 3m of BCP and will consider additional options further - booklets for Mirena and Danae provided Referring Provider: SELF [[id number]] Allergies As of Date: 07/26/2018 (No Known Allergies) Date Reviewed: 07/26/2018 Reviewed by: Ella Overton Ma - Fully Assessed Reason for Visit: Menstrual Problem [67] Cmt: Pt states bleeding 3 weeks out of 4. X 2 months Primary Visit Diagnosis:Cervical cancer screening [Z12.4] Other Visit Diagnosis:Irregular bleeding [N92.6] Order(s):PAP FLUID CERVICAL SCREENING [[id number]] Order #: [id number] FEMALE PELVIS TRANSVAG [[id number]] Order #: [id number] FUTURE norgestimate 0.25 mg-ethinyl estradiol 35 mcg (MONONESSA) 0.25-35 mg-mcg per tabletTake 1 tablet by mouth once daily.Disp: 3 PackageRfl: 0 Prescriptions as of 07/26/2018 Sig: NORGESTIMATE 0.25 MG-ETHINYL * Take 1 tablet by mouth once d* NORGESTIMATE 0.25 MG-ETHINYL * Take 1 tablet by mouth once d* Patient not taking: Reported on 07/26/2018 Problem List As Of Date 07/26/2018 Noted Resolved Routine gynecological examination [Z01.419] INVALID FOR* More... Well adult exam [Z00.00] INVALID FOR* More... Obesity (BMI 30-39.9) [E66.9] INVALID FOR* Hyperlipidemia [E78.5] INVALID FOR* Abnormal uterine bleeding (AUB) [N93.9] INVALID FOR* Prescriptions ordered this encounter Disp Refills Start End NORGESTIMATE 0.25 MG-ETHINYL ESTRADI* 3 Pa* 0 07/26/2018 Route: ORAL Sig: Take 1 tablet by mouth once daily. Encounter Status:Closed by CASANDRA ROMO MD on 07/26/18 Normal [facility] CYTOLOGYon 07-26-2018 CYTOLOGY ADDITIONAL PROCEDURES PRESENT Specimen originated from [facility] Specimen #: [id number] Submitting Physician: CASANDRA ROMO SPECIMEN SUBMITTED A: CERVICAL, SCREENING, FLUID FINAL DIAGNOSIS A. CERVICAL, SCREENING, FLUID Unsatisfactory for evaluation. Excess blood. Limited cellularity. This specimen has been analyzed by the [facility] [facility] System, an automated imaging and review system, which assists the laboratory in evaluating cells on ThinPrep Pap tests. Following automated imaging, selected elam from every slide are reviewed by a electrode turner and finisher. DARWIN Bourgeois(ASCP) (Electronic Signature) ADDITIONAL PROCEDURE(S) HUMAN PAPILLOMA VIRUS Date Ordered: 07/26/2018 Date Reported: 07/28/2018 Procedure Results and Interpretation Negative for HPV DNA high risk type 16 by PCR. Negative for HPV DNA high risk type 18 by PCR. Negative for HPV DNA high risk types: 31,33,35,39,45,51,52 ,56,58,59,66,68 by PCR. This test was developed and its performance characteristics determined by [facility] Pathology [facility] Laboratory Medicine [place] ([facility]). It has not been cleared or approved by the FDA. -[place] is regulated under CLIA as qualified to perform high-complexity testing. This test is used for clinical purposes. It should not be regarded as investigational or for research. CLINICAL DATA ROUTINE EXAM, HPV Testing: Yes, automatic HPV patients over 30 Date of Last Menstrual Period: 06/19/2018 GROSS DESCRIPTION Glacial Acetic Acid added. STAINS A: CERVICAL, SCREENING, FLUID THIN PREP PHYSICS TUTOR x 2 Adrian Llamas M.D., Chemistry Intern Date of Report: 08/04/2018 Date of Procedure: 07/26/2018 Date of Receipt: 07/26/2018 Submitted by: CASANDRA ROMO [facility] interpretation performed at [facility], [address] [place] [address]. CLIA Number: [id number] The Pap Smear is a screening test for cervical cancer. False negative results occur with all screening tests, emphasizing the need for rescreening at recommended intervals, and clinical correlation. Normal [facility] HPV w/Genotypeon 07-26-2018 HPV HighRisk Other Negative for HPV DNA high risk types: 31,33,35,39,45,51,52 ,56,58,59,66,68 by PCR. Normal [facility] Comment on above: Result Comment: This test was developed and its performance characteristics determined by [facility]ology [facility] Laboratory [facility] [place] ([facility]). It has not been cleared or approved by the FDA. -[place] is regulated under CLIA as qualified to perform high-complexity testing. This test is used for clinical purposes. It should not be regarded as investigational or for research. Performed By: #### H PVHRR #### [place] [address] HPV HighRisk Type 16 Negative Normal [facility] Comment on above: Performed By: #### H PVHRR #### [facility] [address] [place], [place] [address] HPV HighRisk Type 18 Negative [facility] Comment on above: Performed By: #### H PVHRR #### [facility] [employer] [address] [place], [place] [address] PROGRESSon 07-26-2018 Protein mass conc HNO ID: [id number] Author: Casandra Romo Service: ? Author Type: Physician Type: Progress Notes Filed: 07/26/2018 9:15 AM Note Text: Patient presents with irregular bleeding. Has had continuous light bleeding with intermittent heavier bleeding for the past 4-5 weeks. This is the first time this has happened where it is light. In the past, irregular bleeding has been heavy and she has been treated with BCP which resolved it. Also notes increased vaginal discharge approximately 3-4 mo ago, not blood, but increase in volume with odor, no itching. TSH done 08/2017 with normal T4 Pap unsat in 2018 - will recollect today at patient's request Reviewed and updated in Epic: PMHX PSHx FHx Meds Allergies ROS - denies RENEE, blurry vision, ringing in ears, changes to taste or smell, difficulty swallowing, nausea, vomiting, pain with urination, blood in the stools, numbness or weakness, no concerns with intercourse, no chest pain or SOB PE Gen - well nurished, no distress HEENT - atraumatic, pink moist mucus membranes Abd - soft, NT - no external lesions, no vaginal lesions, no cervical lesions, bimanual exam reveals no cervical motion tenderness, mobile uterus, no adnexal masses or tenderness, minimal blood in vault Ext - +5 strength bilaterally A/P: Irregular bleeding Options discussed regarding treatment for abnormal bleeding including estrogen and progesterone combination pills/patches/rings, progesterone options of Depo provera/Nexplanon/Mi mary IUD, non-hormonal therapy with lysteda, NovaSure endometrial ablation, DANDC with or without hysteroscopy, or hysterectomy in light of other existing issues as noted above. - patient elects 3m of BCP and will consider additional options further - booklets for Mirena and Danae provided Normal [facility] CNCOon 10-25-2017 CNCO HNO ID: [id number] Author: Mammography Coordinator Service: (none) Author Type: Physician Type: Letter Filed: 10/26/2017 11:32 PM Note Text: October 25, 2017 PID: [id number] Madison Javed Meng [address] [place] [id number] Dear Ms. Li, We are pleased to inform you that the results of your recent breast imaging exam on 10/25/2017 are normal. Early detection of cancer is very important. We also understand recommendations regarding breast cancer screening are controversial. Please discuss with your primary care provider which strategy is best for you and whether a mammogram is right for you. Your imaging studies and report will be kept on file at [facility] as part of your permanent medical record and are available for your continuing care. Thank you for allowing us to help in meeting your health care needs. Sincerely, Dr. Quinteros Interpreting Radiologist [facility]. (Normal over 40) Normal [facility] SCREENINGon 10-25-2017 [facility] SCREENING * * *Final Report* * * DATE OF EXAM: Oct 25 2017 4:16PM MEENAKSHI Chavez - [facility] SCREENING / PROCEDURE REASON: Z12.31-Encounter for screening mammogram for malignant neoplasm of breast * * * * Physician Interpretation * * * * #[id number] - [facility] SCREENING BILATERAL DIGITAL SCREENING MAMMOGRAM WITH CAD: 10/25/2017 HISTORY: Z12.31-Encounter For Screening Mammogram For Malignant Neoplasm Of Breast /Screening Mammogram - patient reports NO symptoms. RESULT: TECHNIQUE: The study was acquired using full field digital technology and interpreted from soft copy. Current study was also evaluated with a Computer Aided Detection (CAD). Comparison is made to exam dated: 07/05/2012 mammogram - [facility]. There are scattered fibroglandular elements in both breasts. No significant masses, calcifications, or other findings are seen in either breast. There has been no significant interval change. IMPRESSION: NEGATIVE There is no mammographic evidence of malignancy.A 1 year screening mammogram is recommended. Sabrina Quinteros M.D., mc/penrad:10/25/2017 16:55:16 [place] Hand: Nora Smart RT(R)(Alexey), [facility] letter sent: Normal over 40 Mammogram BI-RADS: 1 Negative Bearingizer: Anand Transcribe Date/Time: Oct 25 2017 4:00P Dictated by : SABRINA QUINTEROS MD This examination was interpreted and the report reviewed and electronically signed by: SABRINA QUINTEROS MD on Oct 25 2017 4:55PM EST [id number] [facility]2017 [facility] Office Visit (OBGMEM) MADISON LI ([id number]) 1975 F Date Time Provider Department 10/11/17 3:30 PM CASANDRA ROMO During your visit today, we recorded the following information about you: Blood pressure Weight Last Period 158/77 95.9 kg 09/18/17 Casandra Romo MD 10/11/2017 3:45 PM Signed Madison Escobar Guillermo is a 41 year old who presents for her annual gynecologic exam. PHYSICS TUTOR complaints: irregular bleeding that resolved last month with a BCP. Menses: had an irregular bleeding episode lasting 3 weeks that has since resolved. Contraception: Sexual Activity: Patient is sexually active. Uses Surgical for control. Last pap - 5+ years Last mammogram - 5 years Never has had colonoscopy PAST HISTORIES: PAST MEDICAL HISTORY Diagnosis Date - Abnormal uterine bleeding (AUB) 09/06/2014 - S/P tubal ligation - Vaginal delivery PAST SURGICAL HISTORY Procedure Laterality Date - SALPINGECTOMY 03/2005 L/S BTL Falope rings FAMILY HISTORY Problem Relation Age of Onset - Alzheimer's Disease Paternal Grandmother - Coronary Artery Disease Father 63 - Hypertension Father - Lipids Father - Coronary Artery Disease Paternal Uncle 60's - Breast Cancer Other pat cousin Social History Marital status: Spouse name: Years of education: Number of children: Social History Main Topics Smoking status: Never Smoker Smokeless tobacco: Never Used Alcohol use: Yes Comment: occasional Drug use: No Sexual activity: Yes control/protection: 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 No bloating, early satiety, indigestion, or increased flatulence. Bladder: No dysuria, gross hematuria, urinary frequency, urinary urgency, or incontinence. Breast: No breast lumps, nipple d/c, overlying skin changes, redness or skin retraction. EXAM: BP 158/77 Wt 211 lb 8 oz (95.9kg) LMP 09/18/2017 GENERAL: pleasant, White female in no apparent distress HEENT: Normocephalic, atraumatic, mucus membranes moist and no lesions NECK: Supple, full range of motion, no adenopathy and thyroid normal DERMATOLOGY: Normal, without lesions, non-icteric and non-hirsute BREAST: soft, non-tender, symmetric, no dominant mass, normal nipple-areolar complex, no lymphadenopathy and no nipple discharge CHEST: Normal inspiratory effort ABDOMEN: soft, non-tender and no masses PELVIC: external genitalia normal, normal Bartholin's glands, urethra, Speed's glands, no vulvar lesions, no cervical lesions, good vaginal support, physiologic discharge present, normal appearing perineal body and perianal region BIMANUAL: uterus normal size, shape and consistency, no adnexal masses and non-tender RECTOVAGINAL: deferred. NEURO: alert and oriented x3,exam grossly non-focal EXTREMITIES: normal ASSESSMENT/PLAN: 1) Health maintenance: Pap done with HPV. Mammogram ordered. Smoking cessation: Patient does not smoke. 2) Return if symptoms worsen or fail to improve. Casandra Romo MD Referring Provider: SELF [200] Allergies As of Date: 10/11/2017 (No Known Allergies) Date Reviewed: 10/11/2017 Reviewed by: Casandra Romo - Fully Assessed Reason for Visit: Follow Up [171] Cmt: Results and annual Primary Visit Diagnosis:Encounter for gynecological examination without abnormal finding [Z01.419] Other Visit Diagnosis:Breast screening [Z12.31] Order(s):PAP FLUID CERVICAL SCREENING [[id number]] Order #: [id number]. #[id number] COMFORT SCREENING [[id number]] Order #: [id number] FUTURE HPV W/GENOTYPE [SQHPVHRR] Order #: [id number]. #:[id number] Prescriptions as of 10/11/2017 Sig: NORGESTIMATE 0.25 MG-ETHINYL * Take 1 tablet by mouth once d* Problem List As Of Date 10/11/2017 Noted Resolved Routine gynecological examination [Z01.419] INVALID FOR* Priority: D More... Well adult exam [Z00.00] INVALID FOR* More... Obesity (BMI 30-39.9) [E66.9] INVALID FOR* Hyperlipidemia [E78.5] INVALID FOR* Priority: A Abnormal uterine bleeding (AUB) [N93.9] INVALID FOR* Disposition: Return if symptoms worsen or fail to improve. Follow-up and Disposition History Recorded Letter Text Casandra Romo MD [facility] [address] [place] [address], [address] [place] [address] Madison Escobar Meng February 07, 2018 Madison Escobar Meng [address] [place] [address] Dear Madison, Your recent pap smear returned negative for Human Papilloma Virus, but incomplete due to the lack of cells to evaluate. Human Papilloma Virus is the leading cause of cervical changes, so it is reassuring that this was negative, but not all abnormalities of the cervix can be ruled out with this test alone. There were too few cells for the pathologist to give a complete result. As you are aware, an abnormal pap test can lead to cervical cancer in some cases, so it is important to have the cells evaluated as well. It is important that you have follow up testing to resolve the incomplete screening of your cervix. Please call the office to schedule a second attempt at cell collection. If the collection is again inadequate, you will require a different form of evaluation to be sure you are being adequately screened. We look forward to hearing from you soon. Sincerely, Casandra Romo MD, [facility] Encounter Status:Closed by CASANDRA ROMO MD on 10/11/17 Normal [facility] CYTOLOGYon 10-11-2017 CYTOLOGY ADDITIONAL PROCEDURES PRESENT Specimen originated from [facility] Specimen #: [id number] Submitting Physician: CASANDRA ROMO SPECIMEN SUBMITTED A: CERVICAL, SCREENING, FLUID FINAL DIAGNOSIS A. CERVICAL, SCREENING, FLUID Unsatisfactory for evaluation. Limited cellularity. Predominance of coccobacilli consistent with shift in vaginal sherita. This specimen has been analyzed by the ThinPrep Imaging System, an automated imaging and review system, which assists the laboratory in evaluating cells on ThinPrep Pap tests. Following automated imaging, selected elam from every slide are reviewed by a electrode turner and finisher. DARWIN Hurtado(ASCP) (Electronic Signature) ADDITIONAL PROCEDURE(S) HUMAN PAPILLOMA VIRUS Date Ordered: 10/12/2017 Date Reported: 10/14/2017 Procedure Results and Interpretation Negative for HPV DNA high risk type 16 by PCR. Negative for HPV DNA high risk type 18 by PCR. Negative for HPV DNA high risk types: 31,33,35,39,45,51,52 ,56,58,59,66,68 by PCR. This test was developed and its performance characteristics determined by [facility]'s [facility] [place] ([facility]). It has not been cleared or approved by the FDA. [facility] is regulated under CLIA as qualified to perform high-complexity testing. This test is used for clinical purposes. It should not be regarded as investigational or for research. CLINICAL DATA ROUTINE EXAM, HPV Testing: Yes, automatic HPV patients over 30 Date of Last Menstrual Period: 09/18/2017 STAINS A: CERVICAL, SCREENING, FLUID THIN PREP PHYSICS TUTOR Casandra Fitzpatrick M.D., Supervisor Policy Change Clerks Date of Report: 10/17/2017 Date of Procedure: 10/11/2017 Date of Receipt: 10/12/2017 Submitted by: CASANDRA ROMO [facility] Diagnostic interpretation performed at [facility], [address] [place] [address]. The Pap Smear is a screening test for cervical cancer. False negative results occur with all screening tests, emphasizing the need for rescreening at recommended intervals, and clinical correlation. Normal [facility] HPV w/Genotypeon 10-11-2017 HPV HighRisk Other Negative for HPV DNA high risk types: 31,33,35,39,45,51,52 ,56,58,59,66,68 by PCR. Normal [facility] Comment on above: Result Comment: This test was developed and its performance characteristics determined by [facility]'s [facility] Pathology and Laboratory Medicine [place] ([facility]). It has not been cleared or approved by the FDA. [facility] is regulated under CLIA as qualified to perform high-complexity testing. This test is used for clinical purposes. It should not be regarded as investigational or for research. Performed By: #### H PVHRR #### [place] [address] HPV HighRisk Type 16 Negative Normal [facility] Comment on above: Performed By: #### H PVHRR #### [place] [phone] HPV HighRisk Type 18 Negative Normal [facility] Comment on above: Performed By: #### H PVHRR #### [place] [phone] PROGRESSon 10-11-2017 Protein mass conc HNO ID: [id number] Author: Casandra Romo Service: (none) Author Type: Physician Type: Progress Notes Filed: 10/11/2017 3:45 PM Note Text: Madison Escobar Meng is a 41 year old who presents for her annual gynecologic exam. PHYSICS TUTOR complaints: irregular bleeding that resolved last month with a BCP. Menses: had an irregular bleeding episode lasting 3 weeks that has since resolved. Contraception: Sexual Activity: Patient is sexually active. Uses Surgical for control. Last pap - 5+ years Last mammogram - 5 years Never has had colonoscopy PAST HISTORIES: PAST MEDICAL HISTORY Diagnosis Date - Abnormal uterine bleeding (AUB) 09/06/2014 - S/P tubal ligation - Vaginal delivery PAST SURGICAL HISTORY Procedure Laterality Date - SALPINGECTOMY 03/2005 L/S BTL Falope rings FAMILY HISTORY Problem Relation Age of Onset - Alzheimer's Disease Paternal Grandmother - Coronary Artery Disease Father 63 - Hypertension Father - Lipids Father - Coronary Artery Disease Paternal Uncle 60's - Breast Cancer Other pat cousin Social History Marital status: Spouse name: Years of education: Number of children: Social History Main Topics Smoking status: Never Smoker Smokeless tobacco: Never Used Alcohol use: Yes Comment: occasional Drug use: No Sexual activity: Yes control/protection: 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 No bloating, early satiety, indigestion, or increased flatulence. Bladder: No dysuria, gross hematuria, urinary frequency, urinary urgency, or incontinence. Breast: No breast lumps, nipple d/c, overlying skin changes, redness or skin retraction. EXAM: BP 158/77 Wt 211 lb 8 oz (95.9kg) LMP 09/18/2017 GENERAL: pleasant, White female in no apparent distress HEENT: Normocephalic, atraumatic, mucus membranes moist and no lesions NECK: Supple, full range of motion, no adenopathy and thyroid normal DERMATOLOGY: Normal, without lesions, non-icteric and non-hirsute BREAST: soft, non-tender, symmetric, no dominant mass, normal nipple-areolar complex, no lymphadenopathy and no nipple discharge CHEST: Normal inspiratory effort ABDOMEN: soft, non-tender and no masses PELVIC: external genitalia normal, normal Bartholin's glands, urethra, Speed's glands, no vulvar lesions, no cervical lesions, good vaginal support, physiologic discharge present, normal appearing perineal body and perianal region BIMANUAL: uterus normal size, shape and consistency, no adnexal masses and non-tender RECTOVAGINAL: deferred. NEURO: alert and oriented x3,exam grossly non-focal EXTREMITIES: normal ASSESSMENT/PLAN: 1) Health maintenance: Pap done with HPV. Mammogram ordered. Smoking cessation: Patient does not smoke. 2) Return if symptoms worsen or fail to improve. Casandra Romo MD Normal [facility] Vital Signs Date Time Vital Sign Value Performing Clinician Romie driver 06-27-2024 16:33-0400 Body height 162.[address] Supriya Swartz MD Work Phone: [facility] 06-27-2024 16:33-0400 Body mass index (BMI) [Ratio] 39.9 kg/m2 Dr. Supriya Swartz MD Work Phone: [facility] 06-27-2024 16:33-0400 Body temperature 97 [degF] Dr. Supriya Swartz MD Work Phone: [facility] 06-27-2024 16:33-0400 Body weight 105.[address] Supriya Swartz MD Work Phone: [facility] 06-27-2024 16:33-0400 Diastolic blood pressure 78 mm[Hg] Dr. Supriya Swartz MD Work Phone: [facility] 06-27-2024 16:33-0400 Heart rate 88 /min Dr. Supriya Swartz MD Work Phone: [facility] 06-27-2024 16:33-0400 Respiratory rate 16 /min Dr. Supriya Swartz MD Work Phone: [facility] 06-27-2024 16:33-0400 SaO2% (BldA) [Mass fraction] 98 % Dr. Supriya Swartz MD Work Phone: [facility] 06-27-2024 16:33-0400 Systolic blood pressure 128 mm[Hg] Dr. Supriya Swartz MD Work Phone: [facility] 06-27-2024 16:18-0400 Body mass index (BMI) [Ratio] 39.3 kg/m2 Dr. Supriya Swartz MD Work Phone: [facility] 06-27-2024 16:18-0400 Body temperature 97.4 [degF] Dr. Supriya Swartz MD Work Phone: [facility] 06-27-2024 16:18-0400 Body weight 103.[address] Supriya Swartz MD Work Phone: [facility] 06-27-2024 16:18-0400 Diastolic blood pressure 82 mm[Hg] Dr. Supriya Swartz MD Work Phone: [facility] 06-27-2024 16:18-0400 Heart rate 66 /min Dr. Supriya Swartz MD Work Phone: [facility] 06-27-2024 16:18-0400 Respiratory rate 14 /min Dr. Supriya Swartz MD Work Phone: [facility] 06-27-2024 16:18-0400 SaO2% (BldA) [Mass fraction] 99 % Dr. Supriya Swartz MD Work Phone: [facility] 06-27-2024 16:18-0400 Systolic blood pressure 120 mm[Hg] Dr. Supriya Swartz MD Work Phone: [facility] 06-01-2023 16:02-0500 Body height 162.56 cm MD Supriya BOSCH [facility] 06-01-2023 16:02-0500 Body mass index (BMI) [Ratio] 36.8 kg/m2 MD Supriya Swartz [facility] 06-01-2023 16:02-0500 Body temperature 98 [degF] kishan Swartz [facility] 06-01-2023 16:02-0500 Body weight 97.29 kg MD Supriya Swartz [facility] 06-01-2023 16:02-0500 Diastolic blood pressure 74 mm[Hg] kishan Swartz [facility] 06-01-2023 16:02-0500 Heart rate 69 /[facility] 16:02-0500 Respiratory rate 16 /min kishan Swartz [facility] 06-01-2023 16:02-0500 SaO2% (BldA) [Mass fraction] 99 % [facility] 06-01-2023 16:02-0500 Systolic blood pressure 136 mm[Hg] [facility] Encounters Encounter Date Encounter Type Care Provider Facility Start: 01-17-2025 ambulatory Supriya Gavin ty:[facility] Start: 12-26-2024 End: 12-26-[address] Supriya Swartz MD -[facility] Work Phone: Start: 12-26-2024 End: 12-26-[address] Supriya Swartz MD Work Phone: -[facility] Start: 12-26-[address] Supriya Swartz MD -Laboratory Work Phone: Start: 12-26-2024 ambulatory Supriya Gavin ty:[facility] Start: 07-09-2024 Encounter for genera l adult medical examination without abnormal findings [facility] Start: 07-03-2024 End: 07-03-[address] Supriya Swartz MD Work Phone: [facility] Work Phone: Start: 07-03-2024 End: 07-03-[address] Supriya Swartz MD -Laboratory, [facility] Start: 07-03-2024 End: 07-03-2024 ambulatory [facility] Facility:[facility] Start: 06-27-2024 End: 06-27-[address] Supriya Swartz MD -[facility] Work Phone: Start: 06-27-2024 End: 06-27-[address] Supriya Swartz MD [facility] Start: 06-27-2024 End: 06-27-2024 [facility] Start: 06-01-2023 End: 06-01-2023 ambulatory MD Supriya BOSCH [facility] Work Phone: Start: 06-01-2023 End: 06-01-2023 Encounter for general adult medical examination without abnormal findings MD Supriya BOSCH [facility] Start: 06-01-2023 End: 06-01-2023 Patient encounter procedure MD Supriya BOSCH [facility] Work Phone: Start: 12-24-2020 Patient encounter status MD Supriya BOSCH [facility] Start: 12-06-2016 Ambulatory UNKNOWN PROVIDER [facility] Procedures Date Procedure Procedure Detail Performing Clinician H/O: hysterectomy History of par tial hysterectomy MD Supriya BOSCH H/O: hysterectomy S/P hysterectomy MD Derek BOSCH Comment on above: robotic assisted TLH H/O: hysterectomy S/P hysterectomy Dr. Siddharth Swartz MD H/O: surgery H/O bilateral salpingectomy MD Supriya BOSCH Plan of Treatment Date Care Activity Detail Author Start: 06-27-2024 Patient referral [facility] Work Phone: Start: 06-01-2023 Patient referral [facility] Work Phone: Patient referral [facility] Work Phone: Payers Date Payer Category Payer Self-pay [id number] 2023 Private Health Insurance [id number] Unknown Unknown [employer] [id number] Unknown [id number] [id number] [id number] Unknown [id number] [id number] Unknown [id number] 2.16.8 [id number] Unknown [id number] 2.16.8 [id number] Unknown [id number] 2.16.8 [id number] Social History Date Type Detail Facility Start: 06-01-2023 [facility] Start: 1975 Sex Assigned At Female [facility] Start: 06-27-2024 [facility] (finding) [facility] Start: 07-09-2024 Sex Female (finding) [facility] Sex Female [facility] Medical Equipment Procedure Code Equipment Code Equipment Origin al Text Equipment Identifier Dates Abdominal hysterectomy with conservation of ovaries SHEREEN 3GRM HEMOSTAT ABS FDA Start: 09-09-2020 Abdominal hysterectomy with conservation of ovaries SHEREEN 3GRM HEMOSTAT ABS FDA Start: 09-09-2020 Abdominal hysterectomy with conservation of ovaries SHEREEN 3GRM HEMOSTAT ABS FDA Start: 09-09-2020 Progress note 12-26-2024 Note Date & Type Note Facility 12-26-2024 Progress note [facility] Evaluation note 06-27-2024 Note Date & Type Note Facility 06-27-2024 Evaluation note Diagnosis Onset Date Resolution Preventative health care acute June 27, 2024 4:01pm S/P hysterectomy acute June 272024 4:01pm Hyperlipidemia chronic June 4:01pm Hypertension chronic June 27, 2024 4:01pm [facility] Work Phone: Evaluation note Note Date & Type Note Facility Evaluation note Diagnosis Onset Date Health care maintenance acut e Hyperlipidemia chronic Hypertension chronic [facility] Work Phone: Evaluation note Note Date & Type Note Facility Evaluation note Diagnosis Onset Date Resolution Vaccination declined acute Dec 1:14pm Hyperlipidemia chronic December 26, 2024 1:14pm Hypertension chronic December 262024 1:14pm [facility] Work Phone: Progress note Note Date & Type Note Facility Progress note Note Date/Time December 26, 2024 1:53pm [facility] [address] [place] [address] [place] [address] OFFICE VISIT Date of Service: 12/26/24 MR#: [id number] Acct: [id number] Name: MADISON LI Rep #: [id number] : 1975 Provider: Dr. Monroe Swartz MD Age/Sex: 48/F Location: [facility] Status: Signed Intake Vital Signs 06/27/24 16:18 06/27/24 16:33 Height 5 ft 4 in 5 ft 4 in Weight: 232 lb 4 oz BMI 39.9 BP 128/78 H Blood Pressure Location Lt brachial Position Sitting Respiration 16 Pulse 88 Pulse Source Monitor Temp 97 F L Temp Source Temporal Pulse Oximetry (%) 98 Oxygen Delivery Method room air Intake Visit Reasons: 6 M FU Chief Complaint: Follow-up Sterile Process Coordinator Required: No Accompanied by: Self Is patient in pain?: No Allergies No Known Allergies Allergy (Verified 12/26/24 13:20) Medications ?Medication ?Instructions ?Recorded ?Confirmed ?Type meclizine 25 mg tablet 25 mg PO BID PRN vertigo #60 tabs 04/29/21 12/26/24 Rx amlodipine 5 mg tablet (Norvasc) 5 mg PO DAILY #90 tab s 06/27/24 12/26/24 Rx atorvastatin 40 mg tablet 40 mg PO DAILY #90 tabs 10/0312/26/24 Rx [facility] Medical History (Updated 12/26/24 @ 13:[address] 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 Surgical History History of partial hysterectomy H/O cystoscopy H/O bilateral salpingectomy History of tubal ligation Family History Father Heart disease blood clot blood transfusion Myocardial infarction Unknown Breast cancer Grandfather Myocardial infarction Uncle CVA (cerebral vascular accident) Mother CVA (cerebral vascular accident) Other Alcoholism Social History household members: spouse and children number of children: 1 current occupational status: employed current occupation: Service Now history of recent travel: No sexually active: Yes Smoking Status: Never smoker alcohol intake: current alcohol intake frequency: holidays/special occasions only substance use type: does not use what type of physical activity do you participate in: walking seatbelt use: sometimes do you feel safe at home: Yes additional social history: - Darren ORANTES HPI Chief Complaint: Follow-up Details: MADISON LI, is a 48-year-old female presenting for follow-up of her chronic medical conditions. She has a history of elevated blood pressure, previously recorded at 120/82 mmHg, and is currently measured at 128/78 mmHg at home. The patient reports thatshe is still taking amlodipine 5 mg daily for hypertension, although adherence is inconsistent, particularly on weekends, due to forgetfulness. Her assists in reminding her to take her medications. The patient also has a history of hyperlipidemia, for which she is prescribed atorvastatin, though she admits to occasionally forgetting to take it. Recent blood work shows that her total cholesterol has increased, but her triglyceride levels have improved, though they remain elevated. As above, has been inconsistent with taking her medication but states that she will make changes. There are significant stressors in her life, including a [id number] in the hospital, a close friend who recently underwent a mastectomy, and her own mother's recovery from a stroke, which has been challenging and has reportedly altered her mother's emotional and cognitive functions. Attestation: Documentation on this patient encounter was supported using ambient scribe technology/ voice AI technology. The patient consented to recording for the purpose of documenting the encounter. Provider reviewed content of the generatednote prior to signature. ROS Const Constitutional: No body ache, excessive sweating, fatigue, fever(s), frequent falls, headache(s), snoring, weakness, weight change, sleep problems or change in appetite Eyes Eyes: No blurry vision, change in vision, vision loss, dry eyes, eye pain or Light sensitivity ENT ENT: No abnormal hearing, ear or mastoid pain, tinnitus, nasal congestion, headache(s), neck pain or sore throat Resp Respiratory: No cough, excessive phlegm production, hemoptysis, shortness of breath, snoring or wheezing Cardio Cardiology: No chest pain at rest, chest pain with exertion, excessive sweating,shortness of breath, dyspnea on exertion, lightheadedness, orthopnea or palpitations Gastro GI: No abdominal pain, change in bowel habits, constipation, cramping, diarrhea,nausea/dyspepsia or vomiting Genitourinary-Female: No burning urination, painful urination, urinary incontinence, urinary frequency, blood in urine, abnormal periods or pelvic pain Musc Musculoskeletal: No abnormal gait, joint pain, back pain, limited range of motion, neck pain, numbness, stiffness, tingling or Arthritis Skin Skin: No dry skin, redness, lesions, itchy eyes, rash or wounds Neuro Neurology: No abnormal gait, abnormal hearing, abnormal speech, dizziness, weakness, frequent falls, headache(s), memory loss, numbness or tingling Psych Psychiatric: No anxiety, No change in appetite, No depression, No memory loss and No Thoughts of harming yourself/Others Endo Endocrine: No cold intolerance, excessive sweating, fatigue, flushing, heat intolerance, increased thirst/drinking, increased hunger or weight change Aller/Imm Allergy/Immunologic: No itchy eyes, seasonal allergy symptoms, hives or wheezing Mateo/Lymp Hematologic/Lymphatic: No easy bleeding, easy bruising or enlarged lymph nodes Exam Const General: cooperative, comfortable and no acute distress Orientation: alert, awake and oriented x3 HENMT Head: normal to inspection, normocephalic and atraumatic Ears: hearing grossly normal bilaterally Resp Effort & Inspection: normal respiratory effort and able to speak in complete sentences Auscultation: Bilateral: Clear to Auscultation Cardio Rate: regular rate Rhythm: regular rhythm Heart Sounds: S1 normal and S2 normal GI Palpation: soft (Nontender, no palpable organomegaly.) Neuro General: patient alert, patient awake, patient oriented x3, moves all extremities and CN's II-XI intact bilaterally Extrem General: no clubbing, cyanosis or edema Psych Appearance: grossly normal Mental Status: mental status grossly normal Mood: congruent mood Affect: normal affect Coding Level of Care Code Off vis,est,level 4 Diagnoses Primary hypertension I10 Hypertension type: primary hypertension Mixed hyperlipidemia E78.2 Hyperlipidemia type: mixed hyperlipidemia Vaccination declined Z28.21 Assessment and Plan Assessment and Plan (1) Hypertension: Status: Chronic Qualifiers: Hypertension type: primary hypertension Qualified Code(s): I10 - Essential (primary) hypertension Plan: The patient's blood pressure is under control with amlodipine 5 mg daily, but she reports difficulty with consistent medication adherence on weekends. Continued education on the importance of daily medication adherence was emphasized. The patient is advised to monitor her blood pressure regularly at home and report any significant changes. (2) Hyperlipidemia: Status: Chronic Qualifiers: Hyperlipidemia type: mixed hyperlipidemia Qualified Code(s): E78.2 - Mixed hyperlipidemia Plan: The patient has inconsistent adherence to atorvastatin, resulting in elevated cholesterol levels. The benefits of consistent medication intake were discussed,highlighting the improvement in triglyceride levels. Continuation of atorvastatin was advised with emphasis on adherence. Repeat lipid profile tests were recommended in six months to reassess lipid levels. (3) Vaccination declined: Status: Acute Plan: Patient declined Patient Instructions: - Continue taking your prescribed medications daily for both blood pressure and cholesterol. - Use reminders or set alarms on your phone to help remember weekend doses. - Monitor your blood pressure at home regularly. - Bring any significant changes in blood pressure or symptoms to attention. - Return for routine blood work in six months to check your cholesterol levels. - Follow up yearly for a comprehensive wellness examination. 12/26/24 1235 <Electronically signed by Supriya antonio MD> Date _ Supriya Swartz MD Cosigner Signature: Date (if applicable) CC: ~ [facility] Work Phone: Reason for referral (narrative) Note Date & Type Note Facility Reason for referral (narrative) No reason for referral information available [facility] Work Phone: Summary Purpose Family History No Family History Records Found Relationship Condition Age at Onset Recorded Date/T dwayne Not Specified Alcoholism Unknown father Cardiac disease Unknown Unknown Myocardial infarction Unknown Not Specified Malignant neoplasm of breast Unknown grandfather Myocardial infarction Unknown uncle Cerebrovascular accident (CVA) Unknown Relationship Condition Age at Onset Recorded Date/T dwayne Not Specified Alcoholism Unknown father Cardiac disease Unknown Unknown Myocardial infarction Unknown unrelated friend Malignant neoplasm of breast Unknown grandfather Myocardial infarction Unknown uncle Cerebrovascular accident (CVA) Unknown mother Cerebrovascular accident (CVA) Unknown Advance Directives No Advanced Directives Records Found Advance Directive Response Recorded Date/ Time Living Will No September 03, 2020 7 :22am Power of Dermatologist Managing Partner No September 03, 2020 7:22am Advance Directive Response Recorded Date/ Time Living Will No September 03, 2020 8 :22am Do you have a Healthcare Power of Dermatologist Managing Partner? No September 03, 2020 8:22am Chief Complaint and Reason for Visit Chief Complaint 1 Y FU Reason for Visit Health care maintena nce Hyperlipidemia Hypertension Chief Complaint Admit Date 6 M FU June 27, 2024 4:0 1pm Reason for Visit Admit Date Preventative health care June 27 4:01pm S/P hysterectomy June 27, 2024 4:0 1pm Hyperlipidemia June 27, 2024 4:0 1pm Hypertension June 27, 2024 4:0 1pm Chief Complaint Admit Date E-ORDER December 26, 2024 11:59am 6 M FU December 26, 2024 1:14pm Reason for Visit Admit Date Vaccination declined December 26 1:14pm Hyperlipidemia December 26, 2024 1:14pm Hypertension December 26, 2024 1:14pm Additional Source Comments INFORMATION SOURCE (unrecogn ized section and content) DATE CREATED AUTHOR 09/28/2017 [facility] DATE CREATED AUTHOR AUTHOR'S ORGANIZ ATION 09/07/2018 [facility] DATE CREATED AUTHOR AUTHOR'S ORGANIZ ATION 09/09/2018 [facility] DATE CREATED AUTHOR AUTHOR'S ORGANIZ ATION 01/10/2025 [facility] Care Teams (unrecognized sec tion and content) Team Status: Active Member Role Status Dates Dr. Supriya Swartz MD Primary Care Provider Active Team Status: Inactive Member Role Status Dates Supriya BOSCH MD Primary Care Provider, Referr ing Provider Active Dr. Supriya Swartz MD Attending Provider Active Team Status: Inactive Member Role Status Dates Dr. Supriya Swartz MD Primary Care P rofuad, Attending Provider, Referring Provider Active Team Status: Inactive Member Role Status Dates Dr. Supriya Swartz MD Primary Care Provider Active Start: June 27, 2024 End: June 27, 2024 Dr. Supriya Swartz MD Attending Provider Active Start: June 27, 2024 End: June 27, 2024 Dr. Supriya Swartz MD Referring Provider Active Start: June 27, 2024 End: June 27, 2024 Team Status: Inactive Member Role Status Dates Dr. Supriya Swartz MD Primary Care Provider Active Start: July 03, 2024 End: July 03, 2024 Dr. Supriya Swartz MD Attending Provider Active Start: July 03, 2024 End: July 03, 2024 Dr. Supriya Swartz MD Referring Provider Active Start: July 03, 2024 End: July 03, 2024 Team Status: Active Member Role/Relationship Status Dates Dr. Supriya Swartz MD Primary care physician Activ e Team Status: Active Member Role/Relationship Status Dates Dr. Supriya Swartz MD Primary care physician Activ e Start: December 26, 2024 Dr. Supriya Swartz MD Attending physician Active Start: December 26, 2024 Dr. Supriya Swartz MD Referring Provider Active Start: December 26, 2024 Team Status: Inactive Member Role/Relationship Status Dates Dr. Supriya Swartz MD Primary care physician Activ e Start: December 26, 2024 End: December 26, 2024 Dr. Supriya Swartz MD Attending physician Active Start: December 26, 2024 End: December 26, 2024 Dr. Supriya Swartz MD Referring Provider Active Start: December 26, 2024 End: December 26, 2024 Goals (unrecognized section and content) Goals may be documented in a n alternate sectionGoals may be documented in an alternate sectionGoals may be documented in an alternate section FOR RECORDS PERTAINING TO PATIENTS WHO ARE OR HAVE BEEN ENROLLED IN A CHEMICAL DEPENDENCY/SUBSTANCEABUSE PROGRAM, SOME INFORMATION MAY BE OMITTED. This clinical summary was aggregated from multiple sources. Caution should be exercised in using it in the provision of clinical care. This summary normalizes information from multiple sources, and as a consequence, information in this document may materially change the coding, format and clinical context of patient data. In addition, data may be omitted in some cases. CLINICAL DECISIONS SHOULD BE BASED ON THE PRIMARY CLINICAL RECORDS. [facility] [employer] [facility]. provides no warranty or guarantee of the accuracy or completeness of information in this document.
--- NOTE | 2025-01-17 16:15 | BI_ITS ---
EXAM: SCRN MAMM (CAD)W/CASIE BILAT DATE: 01/17/2025 CLINICAL HISTORY: F, Age 49 y/o , BREAST CANCER SCREENING No family history. TECHNIQUE: Procedure Code: [id number] Modality: MG Procedure: SCRN MAMM (CAD)W/CASIE BILAT COMPARISON: Prior exam(s) dated December 29, 2023.. FINDINGS: TISSUE DENSITY: There are scattered areas of fibroglandular density. Bilateral Breast Mammographic Findings: No significant masses, calcifications or other abnormalities are identified. No suspicious masses, areas of developing architectural distortion, or suspicious calcifications. There has been no significant interval change. BI/SCRN MAMM (CAD)W/CASIE BILAT IMPRESSION: Stable bilateral screening mammogram. OVERALL FINAL ASSESSMENT BI-RADS 1: NEGATIVE. RECOMMENDATION: Routine annual follow-up in 1 Year Additional Recommendation none A letter with findings and recommendations will be mailed to the patient. Reading Location: [place] [address]
== END | disposition home or self-care (01) ==
LOC: OPBI 15:49
PROVIDERS: PCP Internal Medicine; Referring Provider Internal Medicine; Visit Provider Internal Medicine
DX: Z12.31 Encounter for screening mammogram for malignant neoplasm of breast (principal)
CPT/HCPCS: 77063; 77067